=== PATIENT | male | born 1950 | race Caucasian/White ===

== ENCOUNTER 2020-10-18 11:23 | Observation (INO) | payer MEDICARE, SELFPAY ==
[2020-10-18] VITALS (38 sets, daily range): BP systolic 111–181; BP diastolic 67–81; PULSE 48–63; RESP 12–21; TEMP 36.3–36.6; O2SAT 96–100; BMI 24.4
--- NOTE | ~2020-10-18 | XR_ITS ---
XR chest 2V DATE: 10/18/2020 11:56 INDICATION: Left-sided chest pain. TECHNIQUE: PA and lateral views COMPARISON: 05/24/2018 PA and lateral chest FINDINGS: Normal heart size. No hilar or mediastinal enlargement. No pulmonary infiltrate or consolid ation, pleural effusion or pulmonary vascular congestion or pneumothorax. Status post anterior cervical spine surgical fusion. IMPRESSION: No active cardiopulmonary disease Reviewed, dictated and finalized at location A.
--- NOTE | ~2020-10-18 | CT_ITS ---
EXAMINATION: CTA chest PE protocol DATE: 10/18/2020 13:08 CDT INDICATION: Substernal chest pain. Hypertension. TECHNIQUE: Computed tomographic angiography (CTA) of the chest was performed with 100 mL Omnipaque-35 0 intravenous contrast. The dose-length product was 440.68 mGy-cm. Maximum intensity projection 3D-re constructions of the aorta and other arteries were constructed by the technologist on a separate work station. Automated exposure control and iterative reconstruction technique were employed. COMPARISON: Chest x-ray dated 10/18/2020. FINDINGS: Study is technically adequate without evidence for pulmonary embolism. Heart size upper nor mal. No significant pleural or pericardial effusion. No thoracic lymphadenopathy. There is right hydr onephrosis. Dependent atelectasis. No endobronchial lesions. No focal airspace consolidation. No pulm onary nodules or masses. IMPRESSION: 1. No acute cardiopulmonary disease. No evidence for pulmonary embolism. Reviewed, dictated and finalized at location B.
--- NOTE | 2020-10-18 11:24 | ECG_ITS ---
Measurements Intervals [place] Rate: 49 P: 71 MO: 144 QRS: 36 QRSD: 94 T: 21 QT: 408 QTc: 371 Interpretive Statements SINUS BRADYCARDIA BASELINE ARTIFACT- I, II, III, AVR, AVL, AVF ABNORMAL ECG Electronically Signed On 10-18-2020 11:32:52 CDT by Cheo Melton D.O.
[2020-10-18 11:44] LABS: Basophils Percent Auto 0.4 % (0.2-1.2); Eosinophils Absolute Auto 0.1 K/mm3 (0-0.3); Hematocrit 43.8 % (42.0-52.0); Immature Granulocyte Absolute 0.02 K/mm3 (0.00-0.031); Immature Granulocyte Percent A 0.4 % (0-0.5); Lymphocytes Absolute Auto 0.67 K/mm3 (0.9-3.2); Lymphocytes Percent Auto 12.2 % (18.3-44.2); Mean Corpuscular HGB Conc 34.2 g/dl (32-36); Mean Corpuscular Hemoglobin 29.9 pg (26-34); Mean Corpuscular Volume 87.4 fl (80-100); Mean Platelet Volume 10.7 fl (7.4-10.4); Monocytes Absolute Auto 0.5 K/mm3 (0.1-0.6); Monocytes Percent Auto 9.7 % (2.6-8.5); Neutrophils Absolute Auto 4.1 K/mm3 (1.3-6.7); Neutrophils Percent Auto 75.3 % (45.5-73.1); Platelet Count Result 175 k/mm3 (150-375); Red Blood Count 5.01 M/mm3 (4.6-6.20); Red Cell Distribution Width 13.2 % (11.5-14.5); White Blood Count 5.5 K/mm3 (4.5-10.0)
[2020-10-18 11:54] LABS: INR 0.9; Partial Thromboplastin Time 24.8 SECONDS (22.3-36.8); Prothrombin Time 13.2 Seconds (11.1-14.7)
[2020-10-18 11:55] LABS: Anion Gap 5 mmol/L (8-16); Blood Urea Nitrogen 11 mg/dL (9-20); Calcium 9.4 mg/dL (8.4-10.2); Carbon Dioxide 31 mmol/L (22-30); Chloride 104 mmol/L (98-107); Estimated CRCL calculation 71 ml/min; Estimated Glomerular Filt Rate > 60; Glucose 108 mg/dL (75-110); Sodium 140 mmol/L (137-145)
[2020-10-18 12:07] LABS: Troponin I < 0.012 ng/mL (0.000-0.034)
--- NOTE | 2020-10-18 12:33 | ED.CHESTPAIN ---
HPI - Chest Pain General Chief Complaint: Chest Pain Stated Complaint: CP Time Seen by Provider: 10/18/20 11:26 Source: RN notes reviewed History of Present Illness HPI narrative: Patient presents to emergency room from home for chest pain. Patient states that starting in the middle the night last night he had lower midsternal to just the left chest pain described as a pressure with radiation up into the neck states that the symptoms have been intermittent but are worse with activity and associated with shortness of breath. States that he had a similar episode approximately 2-1/2 weeks ago and gone to his PCP EKG at that time been normal the been started on famotidine which she has been taking he denies any fevers or chills he denies any nausea or vomiting or any other symptoms he states he has had heart catheterization approximately [address] Eagle that was normal at that time Related Data Home Medications Medication Instructions Recorded Confirmed aspirin [Baby Aspirin] 81 mg PO Q1-2D 10/18/20 Allergies Allergy/AdvReac Type Severity Reaction Status Date / Time piroxicam Allergy Mild FLUSHING Verified 10/02/20 16:41 Review of Systems Review of Systems: Narrative: Gen.: Denies fevers or chills ENT: Denies congestion Respiratory: For shortness of breath CV: Chest pain GI: Denies abdominal pain nausea, emesis or diarrhea Musculoskeletal: Denies back pain or muscle pain Neuro: Denies numbness, tingling, weakness or focal weakness Skin: Denies rash Except as documented, all other systems reviewed and negative PMFSH Past Medical History Medical History (Updated 10/18/20 @ 15:00 by Rafita Turner DO) Essential (primary) hypertension Family History Family History Father Hypertension, Onset Age: 73 Mother Hypertension, Onset Age: 71 Family history of chronic obstructive pulmonary disease, Onset Age: 71 Family history of congestive heart failure, Onset Age: 71 Sibling Family history of cardiovascular disease Other Family history of coronary artery disease Social History Social History Smoking status: Never smoker Alcohol intake: current Exam Narrative: Exam Narrative: APPEARANCE: No acute distress, nontoxic, resting in bed HEENT: Normocephalic, atraumatic, OMM RESPIRATORY: No respiratory distress, clear to auscultation bilaterally with no rhonchi wheezing or rales CARDIOVASCULAR: RRR s murmur ABDOMINAL: Soft nondistended, tender palpation epigastrium left upper quadrant no tenderness right upper quadrant or right lower quadrant left lower quadrant no rebound or guarding MUSCULOSKELETAl: Moves all extremities. No clubbing, cyanosis or edema. NEURO: Awake and alert. Following commands, speech normal, no focal deficits SKIN:: Warm, dry. Normal Color PSYCHIATRIC: Normal affect/mood Course Course Emergency Course: Patient given GI cocktail with minimal change in pain. Given morphine with resolution of pain Review old records Discussed Dr. Eagle presentation work-up agrees with consult at this time Discussed with YASMIN Kline for Dr. Rodriguez presentation work-up agrees with admission at this time Discussed with patient and family results of workup and diagnosis. Discussed need for admission. Patient and family understand and agree to current treatment plan Vital Signs Vital signs: Vital Signs Temperature 97.9 F 10/18/20 11:24 Pulse Rate 55 L 10/18/20 11:24 Respiratory Rate 15 10/18/20 11:24 Blood Pressure 179/74 H 10/18/20 11:24 Pulse Oximetry 98 10/18/20 11:24 Temperature 97.9 F 10/18/20 11:24 Pulse Rate 54 L 10/18/20 14:31 Respiratory Rate 15 10/18/20 14:31 Blood Pressure 137/73 10/18/20 14:31 Pulse Oximetry 96 10/18/20 14:31 MDM - Chest Pain Lab Data Result diagrams: 10/18/20 11:39
[2020-10-18 12:34] LABS: Alanine Aminotransferase 21 U/L (4-50); Alkaline Phosphatase 69 U/L (38-126); Aspartate Amino Transferase 31 U/L (17-59); Lipase 78 U/L (23-300)
[2020-10-18] MEDS: MORPHINE SULFATE (*CRX) 2 MG/ML INJ IV PUSH (14:13)
[2020-10-18 15:02] LABS: Troponin I < 0.012 ng/mL (0.000-0.034)
--- NOTE | 2020-10-18 15:05 | ADMGEN ---
This patient, Camilo Gupta, was admitted to IMU Room 214-01. Patient/family oriented to hospital policies and general routines including ID bracelet, bed and alarms, visiting hours, pain management, procedures, bathroom and other care routines, personal items, smoking policy, room service/diet, and visiting hours. Information on how to activate the Rapid Response Team has been discussed. Patient/Family are encouraged to report perceived risks to care and to ask questions if they do not understand what they are told or what they should do.
--- NOTE | 2020-10-18 16:59 | PM.CNCAR ---
Assessment and Plan Additional Plan 70-year-old gentleman with previous history of some hypertension and mild dyslipidemia but with angiographically minimally diseased coronary arteries 2 years ago. He presents with an intermittent episode syndrome of chest pain for 2-3 weeks interestingly occurring a few days after he received his burch virus injection. He is not having any typical exertional angina. The symptoms seem to be waxing and waning independent of what he is doing in the way of physical activity. Following admission he is being ruled out for acute AR/acute coronary syndrome. I am going to obtain an echocardiogram tomorrow to ensure that LV function is still normal and that there are no regional wall motion abnormalities. At that point we will make a decision as to whether he is needs a renewed ischemic workup or not. Soto Eagle MD [facility] History of Present Illness History of Present Illness Consult date/time: 10/18/20 16:59 Consult reason: chest pain Reason For Visit: Chest pain Narrative: This is a very pleasant 70-year-old man that I know from previous consultation and evaluation a couple of years ago. He was presenting to the hospital emergency room today with episodes of chest pain and symptoms of generalized weakness that were occurring intermittently for the last several weeks. The patient is not known to have any significant coronary disease in fact he had a chest pain evaluation in 2019 and because of a mildly abnormal nuclear stress test underwent a coronary angiogram showing no evidence of any significant obstructive coronary disease. He has not been seen by me since that evaluation since it was essentially negative. He states that he started to have episodes of some intermittent nonexertional chest discomfort that seems to occur off and on for the last several weeks or so. He describes the discomfort as like a bubble like sensation in the low substernal to mid substernal region at times with some radiation up into the throat. There have been times he has notice this is worse in the supine position and better says sitting up or standing. He has not noticed to be is to be related to exertion although he has noticed that he has a sense of generalized fatigue and lack of stamina that is unusual for him. At his current age he has been enjoying very good healthy exercises regularly on an elliptical machine any generally can perform fairly good levels of aerobic activity. Interestingly these episodes of discomfort began several weeks ago a few days after he received his 1st Coronavirus injection. They seemed to dissipate and then he got his 2nd injection last week and the symptoms seem to recur after a few days again. He is not having any fevers or chills and denies any other cardiac symptomatology. He states that he was having some palpitations after I saw him for the angiogram and his PCP had him do a 48 hour Holter monitor couple of years ago that was a negative exam. In the emergency department his 12 lead ECGs were done in the were normal. He also had a 12 lead ECG done last week when he was in his PCPs office that was a normal tracing. Biomarkers are normal for the 1st 2 sets. Review of Systems Constitutional: Constitutional: Reports fatigue, Reports lethargy and Reports weakness Eyes: Eyes: Reports no additional eye complaints ENT: Reports system reviewed and no additional complaints, except as documented Cardiovascular: Cardiovascular: Reports as per HPI Respiratory: Respiratory: Reports no additional respiratory complaints Gastrointestinal: Gastrointestinal: Reports no additional gastrointestinal complaints Musculoskeletal: Musculoskeletal: Reports no additional musculoskeletal complaints Integumentary/Breasts: Skin/Breast: Reports system reviewed and no additional complaints, except as docu Neurologic: Reports system reviewed and no additional complaints, except as documented Endocrine: Endocrine: Repo
[2020-10-18 17:06] LABS: Troponin I < 0.012 ng/mL (0.000-0.034)
[2020-10-18] MEDS: FAMOTIDINE 20 MG TABLET PO (21:17)
--- NOTE | 2020-10-18 21:39 | PM.IMHP ---
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 The patient reports that he is very active at baseline. He goes for 3 mi walks 3-4 days a week and he also uses his elliptical 3 days a week and gets his heart rate up to 140. However starting on the 01 of October she began having episodes of substernal chest pain that is nonradiating that would last for several minutes at a time. The symptoms are accompanied by generalized weakness and fatigue. He initially thought that his chest pain was due to GERD and he was taking p.r.n. famotidine. The patient reported that his symptoms did feel similar to his heartburn and was accompanied by occasional belching. He went to his primary care physician's office after his symptoms persisted. A primary care doctor recommended that he take his famotidine scheduled. His heartburn symptoms did improve in his fatigue gradually resolved. He attributed the symptoms to receiving his Covid vaccine in the middle of August and having a delayed reaction. He then had his 2nd Covid vaccine 10/11/2020. Then on the or he again started having substernal chest discomfort and worsening fatigue and weakness. Times inter not necessarily associated with activity. His chest symptoms sometimes improve after he has belched. However his symptoms of fatigue have persisted. He has not had any nausea or vomiting. He denies any changes in his appetite. His weight has remained stable. He denies any orthopnea, paroxysmal nocturnal dyspnea or lower extremity swelling. He has not had any palpitations. He did have a Holter monitor the year so ago for evaluation of palpitations which was negative. He has not had any cough or congestion. He has not had any known COVID 19 exposures. He denies any shortness of breath with activity. He had a abnormal stress echo in late 2017 and had a cardiac catheterization in July 2018 the demonstrated minimal coronary artery disease with no more than 20-30% coronary artery plaquing. Cardiac catheterization was performed by Dr. Eagle. Review of Systems Review of Systems: Narrative: 12 systems were reviewed with pertinent positives and negatives per HPI. Except as documented in the HPI, all other systems were reviewed and are negative. FOR[facility] Past Medical History Medical History (Updated 10/18/20 @ 22:05 by Mallika Avelar DO) Basal cell carcinoma (BCC) of left nasal sidewall (~2000) Status post resection BPH (benign prostatic hyperplasia) Essential (primary) hypertension GERD (gastroesophageal reflux disease) Mixed hyperlipidemia MTHFR mutation Peripheral neuropathy Bilateral feet and hands Surgical History Surgical History (Updated 10/18/20 @ 22:00 by Mallika Avelar DO) H/O cervical spine surgery (~2014) History of appendectomy (~1973) History of cardiac catheterization July 2018 with less than 20 the 30% coronary artery plaquing of multiple vessels History of lumbar discectomy L4-L5 left-sided microdiskectomy 1992, L4-L5 right lumbar decompression 2000 Status post cataract extraction of both eyes with insertion of intraocular lens Status post left rotator cuff repair (~2004) Ureteropelvic junction obstruction, congenital Left ureteroplasty 1972 due to congenital scarring Family History Family History Father Hypertension, Onset Age: 73 Mother Hypertension, Onset Age: 71 Pulmonary fibrosis CHF (congestive heart failure) Sibling History of blood clots Pulmonary embolism Heart disease Coronary artery disease Social History Social History Smoking status: Never smoker Alcohol intake: current Drinks per we
[2020-10-18] MEDS: ENOXAPARIN 40 MG/0.4 ML SYRINGE SUB-Q (22:56)
[2020-10-19] VITALS (8 sets, daily range): BP systolic 107–149; BP diastolic 61–76; PULSE 44–65; RESP 16–18; TEMP 36.1–36.6; O2SAT 98–100
--- NOTE | 2020-10-19 | ECHO_ITS ---
Patient Info Name: Camilo Gupta Age: 70 years : 1950 Gender: Male Ht: 68 in Wt: 160 lbs BSA: 1.87 m2 HR: 59 bpm BP: 125 / 64 mmHg Heart Rhythm: Sinus Rhythm Technical Quality: Good Exam Date: 10/19/2020 8:21 AM Exam Location: [facility] Pulmonary Exam Room: 214 Patient Status: Inpatient Admit Date: 10/18/2020 Staff Ordering Physician: Soto Eagle MD Machine Shop Worker: Anneliese Patel RDCS Attending Provider: Joe Nguyen MD Referring Physician: Shagufta CHACON; Exam Type: CA echo doppler color flow Study Info Indications - chest pain Complete two-dimensional, color flow and Doppler transthoracic echocardiogram is performed. Summary 1. Complete two-dimensional, color flow and Doppler transthoracic echocardiogram is performed. 2. Left ventricular chamber dimension is normal. 3. Left ventricular systolic function is normal, estimated at 65-70%. 4. There is no increased left ventricular wall thickness. 5. The left ventricular diastolic function is abnormal. 6. Right atrial chamber dimension is mildly enlarged. 7. There is mild aortic valve calcification. 8. There is mild mitral valve regurgitation. 9. There is mild tricuspid valve regurgitation. 10. Mild pulmonary hypertension, estimated pulmonary arterial systolic pressure is 36 mmHg. Left Ventricle Left ventricular chamber dimension is normal. Left ventricular systolic function is normal, estimated at 65-70%. There is no increased left ventricular wall thickness. The left ventricular diastolic function is abnormal. Right Ventricle Right ventricular chamber dimension is normal. Right ventricular systolic function is normal. Left Atria Left atrial chamber dimension is normal. Right Atria Right atrial chamber dimension is mildly enlarged. Atrial Septum Intact interatrial septum visualized by color flow imaging. Aortic Valve The aortic valve is trileaflet. There is mild aortic valve sclerosis. There is no aortic valve stenosis. There is trace aortic valve regurgitation. There is mild aortic valve calcification. Pulmonic Valve The pulmonic valve is normal. There is no pulmonic valve stenosis. There is trace pulmonic regurgitation. Mitral Valve The mitral valve has normal leaflets. There is no mitral valve stenosis. There is mild mitral valve regurgitation. Tricuspid Valve The tricuspid valve leaflets are normal. There is no significant tricuspid valve stenosis. There is mild tricuspid valve regurgitation. Mild pulmonary hypertension, estimated pulmonary arterial systolic pressure is 36 mmHg. Pericardium/Pleural The pericardium appears normal. There is no pericardial effusion. Inferior Vena Cava Dilated inferior vena cava with >50% collapse upon inspiration consistent with elevated right atrial pressure, 10 mmHg. Aorta The aortic root size at the sinus of Valsalva is normal. The prox ascending aorta size is normal. Left Ventricular Outflow Tract Name Value Normal LVOT 2D LVOT Diameter 2.0 cm LVOT Doppler LVOT Peak Gradient 7 mmHg LVOT Me
[2020-10-19 05:16] LABS: Basophils Percent Auto 0.6 % (0.2-1.2); Eosinophils Absolute Auto 0.2 K/mm3 (0-0.3); Eosinophils Percent Auto 3.4 % (0-4.4); Hematocrit 41.8 % (42.0-52.0); Immature Granulocyte Absolute 0.02 K/mm3 (0.00-0.031); Immature Granulocyte Percent A 0.4 % (0-0.5); Lymphocytes Absolute Auto 0.98 K/mm3 (0.9-3.2); Lymphocytes Percent Auto 18.6 % (18.3-44.2); Mean Corpuscular HGB Conc 33.5 g/dl (32-36); Mean Corpuscular Volume 86.7 fl (80-100); Mean Platelet Volume 10.6 fl (7.4-10.4); Monocytes Absolute Auto 0.5 K/mm3 (0.1-0.6); Monocytes Percent Auto 9.1 % (2.6-8.5); Neutrophils Absolute Auto 3.6 K/mm3 (1.3-6.7); Neutrophils Percent Auto 67.9 % (45.5-73.1); Platelet Count Result 167 k/mm3 (150-375); Red Blood Count 4.82 M/mm3 (4.6-6.20); Red Cell Distribution Width 13.2 % (11.5-14.5); White Blood Count 5.3 K/mm3 (4.5-10.0)
[2020-10-19 05:33] LABS: Anion Gap 1 mmol/L (8-16); Blood Urea Nitrogen 12 mg/dL (9-20); Calcium 8.9 mg/dL (8.4-10.2); Carbon Dioxide 34 mmol/L (22-30); Chloride 105 mmol/L (98-107); Estimated CRCL calculation 64 ml/min; Estimated Glomerular Filt Rate > 60; Glucose 97 mg/dL (75-110); Potassium 4.4 mmol/L (3.4-5.0); Sodium 140 mmol/L (137-145)
[2020-10-19] MEDS: TAMSULOSIN HCL 0.4 MG CAPSULE PO (10:07)
[2020-10-19] MEDS: FAMOTIDINE 20 MG TABLET PO (10:07)
[2020-10-19] MEDS: ATORVASTATIN 10 MG TABLET PO (10:07)
[2020-10-19] MEDS: LOSARTAN POTASSIUM 25 MG TABLET PO (10:07)
--- NOTE | 2020-10-19 11:35 | PM.PNCARD ---
Progress Note: A&P Assessment and Plan (1) Chest pain: Qualifiers: Chest pain type: unspecified Qualified Code(s): R07.9 - Chest pain, unspecified Code(s): R07.9 - Chest pain, unspecified Status: Acute Assessment and Plan: Unlikely cardiac. Echocardiogram was unremarkable. Probably GI related cannot exclude a side effect to COVID vaccine and albeit not excluded less likely cardiac in etiology. Will have him follow up with Dr. Eagle in 2-4 weeks. Continue aspirin, statin, ARB. He should obviously return to the hospital if he has recurring the worsening chest pain or discomfort in the were some signs or symptoms (2) Essential (primary) hypertension: Code(s): I10 - Essential (primary) hypertension Status: Acute Assessment and Plan: At goal Subjective Date/time seen: 10/19/20 11:35 Interval history: 70-year-old with chest pain Date of service 10/19/2020: He feels okay and is better. Has some mild residual discomfort but better than previous. No shortness of breath Review of Systems Constitutional: Constitutional: Reports fatigue, Reports lethargy and Reports weakness Eyes: Eyes: Reports no additional eye complaints ENT: Reports system reviewed and no additional complaints, except as documented Cardiovascular: Cardiovascular: Reports as per HPI Respiratory: Respiratory: Reports no additional respiratory complaints Gastrointestinal: Gastrointestinal: Reports no additional gastrointestinal complaints Musculoskeletal: Musculoskeletal: Reports no additional musculoskeletal complaints Integumentary/Breasts: Skin/Breast: Reports system reviewed and no additional complaints, except as docu Neurologic: Reports system reviewed and no additional complaints, except as documented and Reports weakness Endocrine: Endocrine: Reports no additional endocrine complaints and Reports fatigue Hematologic/Lymphatic: Hematologic/Lymphatic: Reports no additional hematologic/lymphatic complaints Allergic/Immunologic: Allergic/Immunologic: Reports no additional allergic/immunologic complaints Exam Const: General: comfortable and no acute distress Other: Pleasant healthy-appearing gentleman in no distress HENMT: Mouth: Yes moist mucous membranes Eyes: Sclera: sclerae normal Neck: Neck: supple and no JVD Carotids: bruit Other: No carotid bruits normal carotid upstrokes Resp: Effort & Inspection: normal respiratory effort Auscultation: clear to auscultation bilaterally Cardio: Rate: regular rate Rhythm: regular rhythm Other: PMI nondisplaced no murmur no gallop GI: GI Palp: No abdominal tenderness Skin: General skin exam: normal color Neuro: Cognition (Neuro): normal cognition Extrem: General: normal to inspection Psych: Appearance: grossly normal Objective Data Vital Signs Vital Signs: Vital Signs - 24 hr 10/18/20 11:45 10/18/20 11:46 10/18/20 11:56 Temperature Pulse Rate 49 L 48 L 55 L Respiratory Rate 18 15 17 Blood Pressure 136/77 157/76 H Pulse Oximetry 98 97 99 10/18/20 12:00 10/18/20 12:01 10/18/20 12:02 Temperature Pulse Rate 48 L 49 L 50 L Respiratory Rate 12 13 13 Blood Pressure 144/69 H Pulse Oximetry 98 98 98 10/18/20 12:09 10/18/20 12:15 10/18/20 12:16 Temperature Pulse Rate 52 L 52 L 54 L Respiratory Rate 12 12 Blood Pressure 151/81 H Pulse Oximetry 98 99 10/18/20 12:30 10/18/20 12:31 10/18/20 12:45 Temperature Pulse Rate 48 L 48 L 52 L Respiratory Rate 12 16 13 Blood Pressure 141/69 H Pulse Oximetry 98 98 99 10/18/20 12:46 10/18/20 13:09 10/18/20 13:11 Temperature Pulse Rate 50 L 59 L 57 L Respiratory Rate 15 16 18 Blood Pressure 154/69 H 161/72 H Pulse Oximetry 97 99 98 10/18/20 13:15 10/18/20 13:16 10/18/20 13:30 Temperature Pulse Rate 56 L 57 L 62 Respiratory Rate 17 18 18 Blood Pressure 148/67 H Pulse Oximetry 99 98 99 10/18/20 13:36 10/18/20 13:45
--- NOTE | 2020-10-19 13:03 | PM.DS ---
DS: Admitting Diagnosis Admitting Diagnosis Admitting Diagnosis: Chest pain DS: Discharge Diagnosis Discharge Diagnosis (1) Chest pain: Qualifiers: Chest pain type: unspecified Qualified Code(s): R07.9 - Chest pain, unspecified Code(s): R07.9 - Chest pain, unspecified Status: Acute Assessment and Plan: Patient's chest pain is atypical in nature and he has had 3 sets of negative troponins. He had a negative cardiac catheterization in July 2018. Echo is unremarkable. ? GI related. Pt may benefit from EGD. Pt to follow with cardiology in 2-4 weeks time. Pt to continue his home medications for HTN and HLD. 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 Troponins are negative patient is stable for discharge. Time Spent with Patient Time attestation: Total time spent providing and/or coordinating discharge services: 20 minutes on day of discharge Exam Narrative: Exam Narrative: General: Well, comfortable Respiratory: Clear to auscultation bilaterally Cardiovascular: Mild bradycardia, regular rhythm, no murmurs Gastrointestinal: Soft, nondistended, positive bowel sounds Skin: No pallor, no jaundice Musculoskeletal: No clubbing, cyanosis or edema Neurological: Alert and oriented, speech is clear, no facial asymmetry, moves all extremities equally Psychiatric: Appropriate mood and affect, pleasant and cooperative Hematologic/lymphatic: No petechiae, no bruising DS: Data Data Completed and Pending Labs on day of discharge: Labs from last 24 hours 10/19/20 10/19/20 10/18/20 05:08 05:07 16:37 WBC 5.3 RBC 4.82 Hgb 14.0 Hct 41.8 L MCV 86.7 MCH 29.0 MCHC 33.5 RDW 13.2 Plt Count 167 MPV 10.6 H Immature Gran % (Auto) 0.4 Neut % (Auto) 67.9 Lymph % (Auto) 18.6 Kaufman % (Auto) 9.1 H Eos % (Auto) 3.4 Baso % (Auto) 0.6 Lymph # (Auto) 0.98 Kaufman # (Auto) 0.5 Eos # (Auto) 0.2 Baso # (Auto) 0.0 Abs Immat Gran (auto) 0.02 Absolute Neuts (auto) 3.6 Absolute Nucleated RBC 0.0 Nucleated RBC % 0.0 Sodium 140 Potassium 4.4 Chloride 105 Carbon Dioxide 34 H Anion Gap 1 L BUN 12 Creatinine 0.90 Estim Creat Clear Calc 64 Estimated GFR > 60 Glucose 97 Calcium 8.9 Troponin I < 0.012 10/18/20 14:29 WBC RBC Hgb Hct MCV MCH MCHC RDW Plt Count MPV Immature Gran % (Auto) Neut % (Auto) Lymph % (Auto) Kaufman % (Auto) Eos % (Auto) Baso % (Auto) Lymph # (Auto) Kaufman # (Auto) Eos # (Auto) Baso # (Auto) Abs Immat Gran (auto) Absolute Neuts (auto) Absolute Nucleated RBC Nucleated RBC % Sodium Potassium Chloride Carbon Dioxide Anion Gap BUN Creatinine Estim Creat Clear Calc Estimated GFR Glucose Calcium Troponin I < 0.012 Discharge Plan Discharge Attending physician on discharge: Miri Braswell Consulting providers: Soto Eagle Discharging Clinician: Miri Braswell Anticipated Discharge Date/Time: 10/19/20 13:02 Patient Disposition: Home, Self-Care Activity: as tolerated Diet: heart healthy Patient Instructions: Antibiotic Form Stand Alone Forms: General Discharge Information Follow-up/Referrals: Francis Stevens MD [Primary Care Provider] - Soto Eagel MD [Physician] - (follow up in 2 weeks time ) Discharge Medications: Continued aspirin 81 mg Tablet,Chewable 81 mg PO QMWF RF: 0 famotidine 20 mg tablet 20 mg PO Q12H RF: 0 tamsulosin 0.4 mg capsule 0
== END 2020-10-19 13:17 | disposition home or self-care (01) ==
LOC: ANHED 11:42 → ANHIMU 15:00
PROVIDERS: Admitting Provider Internal Medicine; Emergency Provider Emergency Medicine; PCP Family Medicine; Visit Provider Family Medicine
DX: R07.89 Other chest pain (principal); R53.83 Other fatigue; I10 Essential (primary) hypertension; E78.5 Hyperlipidemia, unspecified; Z85.828 Personal history of other malignant neoplasm of skin
CPT/HCPCS: 36415; 71046; 71275; 80048; 80076; 83690; 84484; 85025; 85380; 85610; 85730; 93005; 93306; 96372; 96374; 99285; A9270; G0378; J1650; J2270; Q9967

== ENCOUNTER → 2020-10-26 01:42 | Outpatient (CLI) | payer MEDICARE, SELFPAY ==
[2020-10-26 19:34] LABS: SARS-CoV-2 RNA PCR Negative
== END ==
PROVIDERS: Visit Provider Internal Medicine Gastroenterology
DX: Z01.812 Encounter for preprocedural laboratory examination (principal); Z20.822 Contact with and (suspected) exposure to COVID-19
CPT/HCPCS: C9803; U0003; U0005

== ENCOUNTER → 2020-10-28 10:41 | Outpatient (CLI) | payer MEDICARE, SELFPAY ==
--- NOTE | ~2020-10-28 | US_ITS ---
EXAMINATION: US abdomen complete DATE: 10/28/2020 11:22 INDICATION: Generalized abdominal pain. Reflux. Disease of the chest and system. TECHNIQUE: Multiple grayscale and Doppler ultrasound images of the abdomen were obtained. COMPARISON: None FINDINGS: The pancreatic head and body are normal in appearance. The pancreatic tail is not visualized. The vi sualized proximal inferior vena cava is normal. The aorta is also normal measuring 2.3 similar eugene l diameter proximally, 2.2 cm in the mid aorta and tapering to 1.9 cm the distal aorta. Liver has nor mal echogenicity and contour, with a smooth surface. No liver lesion identified. No intrahepatic bili xavi duct dilation suspected. Portal venous flow was seen in the hepatopetal, normal direction and has normal Doppler waveform. The gallbladder is normal in appearance. There is no cholelithiasis. The c ommon bile duct measures 3-4 mm, which is normal. Sonographic Waters sign was reported as negative by the photographic enlarger operator. There is normal renal contour and echogenicity bilaterally. The right kidney measur es 8.9 x 5.5 x 5.4 cm and the left 9.7 x 6.0 x 4.9 cm. There are no focal renal lesions identified. Mild right hydronephrosis.. IMPRESSION: 1. Mild right hydronephrosis of indeterminate etiology. Otherwise unremarkable abdominal ultrasound. Reviewed, dictated and finalized at location B.
== END ==
PROVIDERS: PCP Family Medicine; Visit Provider Family Medicine
DX: R07.9 Chest pain, unspecified (principal); K92.9 Disease of digestive system, unspecified
CPT/HCPCS: 76700

== ENCOUNTER 2020-10-30 01:54 | Day surgery (SDC) | payer MEDICARE, SELFPAY ==
[2020-10-23 13:27] VITALS: BMI 23.9
[2020-10-30 08:42] VITALS: BP 122/72; PULSE 51; RESP 16; TEMP 36.6; O2SAT 97; BMI 24.0
[2020-10-30] MEDS: LACTATED RINGERS 1,000 ML 150 ML IV CONT (08:51)
--- NOTE | 2020-10-30 09:02 | PM.HPGS ---
History of Present Illness History of Present Illness Consent: Risks, benefits, and alternatives have been discussed and questions answered. Patient agrees to proceed with procedure. Chief complaint: epigastric pain Narrative: Camilo Gupta is a 70 year old male with chronic Intermittent reflux who recently had severe chest pain. Cardiac etiology was ruled out. Review of Systems Review of Systems: All systems reviewed & are unremarkable except as noted in HPI and below PMFSH Past Medical History Medical History Basal cell carcinoma (BCC) of left nasal sidewall (~2000) Status post resection BPH (benign prostatic hyperplasia) Essential (primary) hypertension GERD (gastroesophageal reflux disease) Mixed hyperlipidemia MTHFR mutation Peripheral neuropathy Bilateral feet and hands Surgical History Surgical History H/O cervical spine surgery (~2014) History of appendectomy (~1973) History of cardiac catheterization July 2018 with less than 20 the 30% coronary artery plaquing of multiple vessels History of lumbar discectomy L4-L5 left-sided microdiskectomy 1992, L4-L5 right lumbar decompression 2000 Status post cataract extraction of both eyes with insertion of intraocular lens Status post left rotator cuff repair (~2004) Ureteropelvic junction obstruction, congenital Left ureteroplasty 1972 due to congenital scarring Family History Family History Father Hypertension, Onset Age: 73 Mother Hypertension, Onset Age: 71 Pulmonary fibrosis CHF (congestive heart failure) Sibling History of blood clots Pulmonary embolism Heart disease Coronary artery disease Social History Social History Smoking status: Never smoker Alcohol intake: current Drinks per week: 5 Alcohol use details: WINE Substance use: never Substance use type: does not use Living arrangements: with family Spiritual care concerns: No Meds Home Medications and Allergies Home Medications Medication Instructions Recorded Confirmed Type losartan 25 mg tablet 25 mg PO DAILY #90 tablet 05/03/20 10/30/20 Rx atorvastatin 10 mg tablet 10 mg PO DAILY #90 tablet 08/21/20 10/30/20 Rx aspirin 81 mg PO QMWF 10/18/20 10/30/20 History tamsulosin 0.4 mg PO DAILY 10/18/20 10/30/20 History esomeprazole magnesium [Nexium] 20 mg PO DAILY 10/23/20 10/30/20 History magnesium gluconate 500 mg PO DAILY 10/23/20 10/30/20 History polyethylene glycol 3350 [Miralax] 1 g PO DAILY 10/23/20 10/30/20 History vitamin B complex 1 tablet PO DAILY 10/23/20 10/30/20 History Allergies Allergy/AdvReac Type Severity Reaction Status Date / Time piroxicam Allergy Mild FLUSHING Verified 10/30/20 08:39 Vital Signs Vital Signs - 24 hr 10/30/20 08:42 Temperature 36.6 C Pulse Rate 51 L Respiratory Rate 16 Blood Pressure 122/72 Pulse Oximetry 97 Exam Const: General: alert Orientation/consciousness: patient oriented x3 Resp: Auscultation: clear to auscultation bilaterally Cardio: Rhythm: regular rhythm GI: GI Palp: Yes Soft to palpation and No Tenderness to palpation present (GI) Neuro: General: patient oriented x3 Assessment and Plan Assessment and plan (1) Chest pain: Qualifiers: Chest pain type: unspecified Qualified Code(s): R07.9 - Chest pain, unspecified Code(s): R07.9 - Chest pain, unspecified Status: Acute Assessment and Plan: EGD with possible biopsy or dilatation or cautery.
--- NOTE | 2020-10-30 09:15 | WPDANESEPPF ---
Anes - Initial Pre Proc Eval Procedure: Operation Date: 10/30/20 09:30 Proposed Procedures p Esophagogastroduodenoscopy - Renny Hairston MD Date/Time: 10/30/20 09:15 Surgeon: Renny Hairston MD Pre Op Diagnosis: epigastric pain Patient Data Age: 70 Gender: M Height: 5 ft 9 in Weight: 73.8 kg Last Vital Signs Temp 97.8 F 10/30/20 08:42 Pulse 51 L 10/30/20 08:42 Resp 16 10/30/20 08:42 BP 122/72 10/30/20 08:42 Pulse Ox 97 10/30/20 08:42 Allergies Allergy/AdvReac Type Severity Reaction Status Date / Time piroxicam Allergy Mild FLUSHING Verified 10/30/20 08:39 Home Medications Medication Instructions Recorded Confirmed Type losartan 25 mg tablet 25 mg PO DAILY #90 tablet 05/03/20 10/30/20 Rx atorvastatin 10 mg tablet 10 mg PO DAILY #90 tablet 08/21/20 10/30/20 Rx aspirin 81 mg PO QMWF 10/18/20 10/30/20 History tamsulosin 0.4 mg PO DAILY 10/18/20 10/30/20 History esomeprazole magnesium [Nexium] 20 mg PO DAILY 10/23/20 10/30/20 History magnesium gluconate 500 mg PO DAILY 10/23/20 10/30/20 History polyethylene glycol 3350 [Miralax] 1 g PO DAILY 10/23/20 10/30/20 History vitamin B complex 1 tablet PO DAILY 10/23/20 10/30/20 History Patient hx anesthesia problems: none Family hx anesthesia problems: none PMFSH Past Medical History Medical History Basal cell carcinoma (BCC) of left nasal sidewall (~2000) Status post resection BPH (benign prostatic hyperplasia) Essential (primary) hypertension GERD (gastroesophageal reflux disease) Mixed hyperlipidemia MTHFR mutation Peripheral neuropathy Bilateral feet and hands Surgical History Surgical History H/O cervical spine surgery (~2014) History of appendectomy (~1973) History of cardiac catheterization July 2018 with less than 20 the 30% coronary artery plaquing of multiple vessels History of lumbar discectomy L4-L5 left-sided microdiskectomy 1992, L4-L5 right lumbar decompression 2000 Status post cataract extraction of both eyes with insertion of intraocular lens Status post left rotator cuff repair (~2004) Ureteropelvic junction obstruction, congenital Left ureteroplasty 1972 due to congenital scarring Family History Family History Father Hypertension, Onset Age: 73 Mother Hypertension, Onset Age: 71 Pulmonary fibrosis CHF (congestive heart failure) Sibling History of blood clots Pulmonary embolism Heart disease Coronary artery disease Social History Social History Smoking status: Never smoker Alcohol intake: current Drinks per week: 5 Alcohol use details: WINE Substance use: never Substance use type: does not use Living arrangements: with family Spiritual care concerns: No Anes - Eval Final PreProcedure Day of Procedure 10/30/20 09:15 Patient weight: normal Heart: regular rate and rhythm Lungs: clear to auscultation Airway: Mallampati scale class II Neurological: alert and oriented Last oral intake: >/= 8 hours ASA classification: II Emergent: no Anesthetic plan: proceed Anesthesia type and monitoring: general GIVS and standard monitoring Informed Consent: The patient's anesthetic plan and its attendant risks and benefits were discussed with the patient/family/POA. Questions were solicited and answers provided to the satisfaction of the patient/family/POA.
[2020-10-30 09:48] VITALS: BP 94/57; PULSE 50; RESP 26; O2SAT 96
[2020-10-30 09:58] VITALS: BP 116/68; PULSE 50; RESP 26; O2SAT 98
[2020-10-30 10:08] VITALS: BP 122/78; PULSE 49; RESP 26; O2SAT 98
== END 2020-10-30 10:23 | disposition home or self-care (01) ==
PROVIDERS: PCP Family Medicine; Visit Provider Internal Medicine Gastroenterology
PROC: 0DJ08ZZ Inspection of Upper Intestinal Tract, Via Natural or Artificial Opening Endoscopic (ICD-10-PCS; CPT 43235; principal; 2020-10-30 09:30)
DX: R07.89 Other chest pain (principal); K21.00 Gastro-esophageal reflux disease with esophagitis, without bleeding; I10 Essential (primary) hypertension; E78.2 Mixed hyperlipidemia; G62.9 Polyneuropathy, unspecified; E72.12 Methylenetetrahydrofolate reductase deficiency; N40.0 Benign prostatic hyperplasia without lower urinary tract symptoms; Z79.82 Long term (current) use of aspirin
CPT/HCPCS: 43235; J2704; J7120

== ENCOUNTER → 2021-01-28 14:24 | Outpatient (CLI) | payer MEDICARE, SELFPAY ==
--- NOTE | ~2021-01-28 | XR_ITS ---
XR shoulder RT min 2V DATE: 01/28/2021 14:42 INDICATION: Chronic right shoulder pain. No recent injury. TECHNIQUE: 5 views COMPARISON: None FINDINGS: Status post anterior cervical spine surgical fusion. Osteopenia. Degenerative spurring of the thoracic spine. There is suggestion of a small osteochondroma along the neck of the proximal right humerus. No fracture, dislocation, periosteal reaction or bone destruction of the right shoulder. Normal align ment at the acromioclavicular and glenohumeral joints. IMPRESSION: Status post anterior cervical spine surgical fusion Degenerative spurring of the thoracic spine Osteopenia Small osteochondroma of the right humeral neck is suggested Reviewed, dictated and finalized at location A.
== END ==
PROVIDERS: PCP Family Medicine; Visit Provider Family Medicine
DX: M85.811 Other specified disorders of bone density and structure, right shoulder (principal)
CPT/HCPCS: 73030

== ENCOUNTER 2022-09-24 11:18 | Outpatient (CLI) | payer MEDICARE, SELFPAY ==
--- NOTE | 2022-09-24 12:49 | ECG_ITS ---
Measurements Intervals [place] Rate: 47 P: 33 MN: 145 QRS: 34 QRSD: 114 T: 23 QT: 425 QTc: 378 Interpretive Statements SINUS BRADYCARDIA INTRAVENTRICULAR CONDUCTION DELAY BASELINE ARTIFACT- I, II, III, AVR, AVL, AVF ABNORMAL ECG INTRAVENTRICULAR CONDUCTION DELAY NOW PRESENT Electronically Signed On 09-24-2022 13:18:20 PULP DRIER by Cheo Melton D.O.
[2022-09-24 13:28] LABS: Basophils Percent Auto 0.6 % (0.2-1.2); Eosinophils Absolute Auto 0.2 K/mm3 (0-0.3); Eosinophils Percent Auto 2.3 % (0-4.4); Hematocrit 43.6 % (42.0-52.0); Hemoglobin 14.7 g/dL (14.0-18.0); Immature Granulocyte Absolute 0.01 K/mm3 (0.00-0.031); Immature Granulocyte Percent A 0.2 % (0-0.5); Lymphocytes Absolute Auto 1.07 K/mm3 (0.9-3.2); Lymphocytes Percent Auto 16.7 % (18.3-44.2); Mean Corpuscular HGB Conc 33.7 g/dl (32-36); Mean Corpuscular Hemoglobin 29.5 pg (26-34); Mean Corpuscular Volume 87.4 fl (80-100); Mean Platelet Volume 11.4 fl (7.4-10.4); Monocytes Absolute Auto 0.7 K/mm3 (0.1-0.6); Monocytes Percent Auto 10.6 % (2.6-8.5); Neutrophils Absolute Auto 4.5 K/mm3 (1.3-6.7); Neutrophils Percent Auto 69.6 % (45.5-73.1); Platelet Count Result 194 k/mm3 (150-375); Red Blood Count 4.99 M/mm3 (4.6-6.20); Red Cell Distribution Width 13.3 % (11.5-14.5); White Blood Count 6.4 K/mm3 (4.5-10.0)
[2022-09-24 13:41] LABS: Hemoglobin A1C 5.6 % (<5.7)
[2022-09-24 13:44] LABS: Albumin Level 4.5 g/dL (3.5-5.1); Anion Gap 5 mmol/L (8-16); Blood Urea Nitrogen 14 mg/dL (9-20); Carbon Dioxide 31 mmol/L (22-30); Chloride 104 mmol/L (98-107); Estimated Glomerular Filt Rate > 60; Glucose 83 mg/dL (65-110); Potassium 3.9 mmol/L (3.4-5.0); Sodium 140 mmol/L (137-145); Urine Cotinine NEGATIVE
== END 2022-09-24 11:19 | disposition home or self-care (01) ==
PROVIDERS: PCP Emergency Medicine; Visit Provider Orthopaedic Surgery
DX: M16.11 Unilateral primary osteoarthritis, right hip (principal); Z01.818 Encounter for other preprocedural examination; I45.9 Conduction disorder, unspecified
CPT/HCPCS: 80048; 80307; 82040; 83036; 85025; 87081; 93005

== ENCOUNTER 2022-11-23 02:19 | Day surgery (SDC) | payer MEDICARE, SELFPAY ==
[2022-09-24 12:03] VITALS: BMI 25.9
--- NOTE | 2022-09-24 12:26 | PC.NURSE ---
Report to the Outpatient Waiting Room, entrance under the green pavilion located off [address], at time __1000 on date _10/14/22 . Planned Procedure Time: ___1200 . Time changes happen often and if your time is changed the preop area will call you the afternoon before. - You and your visitor will be asked to self-screen and do not enter if you have any COVID symptoms. - Only one visitor is requested with a max of two and NO children visitors are allowed at this time. - The patient visitor may be requested to leave or wait in car when not with patient due to distancing restrictions. - A mask is optional within the hospital at this time. Patients may have clear liquids (water, carbonated beverages, clear teas, apple juice) until 3 hours prior to surgery with a maximum of 20 ounces. - No food from midnight until time of surgery - Infants may have breast milk until 4 hours before surgery, infant formula 6 hours prior to surgery. - Children will be allowed to drink immediately following surgery. If applicable, please bring a bottle or sippy cup to assist with drinking. Juice, water, soda, and popsicles are readily available. For infants on formula, please bring formula the day of surgery. Pacifiers are allowed. Take the following medications with a SIP of water the morning of surgery: ____EYE DROP DO NOT STOP ANY OF YOUR OTHER PRESCRIPTION MEDICATIONS PRIOR TO SURGERY ?EXCEPT THE FOLLOWING Medications to discontinue per physician ___NAPROXEN 7 DAYS PRE OP PER DR HOANG LAST DOSE 10/06/22. ALL VITAMINS/SUPPLEMENTS 3 DAYS PRE OP . LAST DOSE 10/10/22 Please no make-up, nail telugu, hairspray, perfume, deodorant, or body powder the day of surgery. No jewelry (including any body piercings) or valuables the day of surgery, leave them at home. Please take a shower or bath the night before, or the morning of, surgery with an antibacterial soap. Wear comfortable, loose fitting clothing. Children are encouraged to wear pajamas. - Jewelry must be removed prior to entering the operating room. Rings and piercings that are not removed may be cut off. - The hospital will not accept responsibility for valuables. - Please leave all valuables, including medications, at home the day of surgery. If you are going home after surgery, a licensed highway truck driver must drive you home. - NO public transportation without another adult if you receive anesthesia. - We recommend that an adult stay with you for 24 hours following discharge. - We also recommend that you do not drive, make important decision, drink alcoholic beverages, or take any drugs that were not prescribed by your health care provider for at least 24 hours after your discharge time. For Pediatric surgeries, we recommend two adults accompany the child home. Follow any additional instructions given to you from your surgeon. If you or anyone in your household have experienced Covid symptoms in the past week, please notify your surgeon or the nurse liaison at the phone number below for possible testing. VERBAL AND WRITTEN instructions given to __PATIENT and asked if any additional questions and then verbalized understanding. Patient advised to call surgeon office or pre surgery nurse liaison [phone] if any additional questions.
[2022-09-24 12:43] VITALS: BP 133/76; PULSE 46; RESP 18; TEMP 36.7; O2SAT 99
--- NOTE | 2022-11-09 11:07 | PC.NURSE ---
Report to the Outpatient Waiting Room, entrance under the green pavilion located off [facility], at time _0600 on date __11/23/22 . Planned Procedure Time: _0730 . Time changes happen often and if your time is changed the preop area will call you the afternoon before. - You and your visitor will be asked to self-screen and do not enter if you have any COVID symptoms. - A mask is optional within the hospital at this time. Patients may have clear liquids (water, carbonated beverages, clear teas, apple juice) until 3 hours prior to surgery with a maximum of 20 ounces. - No food from midnight until time of surgery - Infants may have breast milk until 4 hours before surgery, formula 6 hours prior to surgery. - Children will be allowed to drink immediately following surgery. If applicable, please bring a bottle or sippy cup to assist with drinking. Juice, water, soda, and popsicles are readily available. For infants on formula, please bring formula the day of surgery. Pacifiers are allowed. Take the following medications with a SIP of water the morning of surgery: ___EYE DROPS DO NOT STOP ANY OF YOUR OTHER PRESCRIPTION MEDICATIONS PRIOR TO SURGERY ?EXCEPT THE FOLLOWING Medications to discontinue per physician NAPROXEN 7 DAYS PRE OP.LAST DOSE 11/15/22. ALL VITAMINS/SUPPLEMENTS 3 DAYS PRE OP.LAST DOSE 11/19/22_ Please no make-up, nail slovenian, hairspray, perfume, deodorant, or body powder the day of surgery. No jewelry (including any body piercings) or valuables the day of surgery, leave them at home. Please take a shower or bath the night before, or the morning of, surgery with an antibacterial soap. Wear comfortable, loose fitting clothing. Children are encouraged to wear pajamas. - Jewelry must be removed prior to entering the operating room. Rings and piercings that are not removed may be cut off. - The hospital will not accept responsibility for valuables. - Please leave all valuables, including medications, at home the day of surgery. If you are going home after surgery, a licensed driver wheelchair must drive you home. - NO public transportation without another adult if you receive anesthesia. - We recommend that an adult stay with you for 24 hours following discharge. - We also recommend that you do not drive, make important decision, drink alcoholic beverages, or take any drugs that were not prescribed by your health care provider for at least 24 hours after your discharge time. For Pediatric surgeries, we recommend two adults accompany the child home. Follow any additional instructions given to you from your surgeon. If you or anyone in your household have experienced Covid symptoms in the past week, please notify your surgeon or the nurse liaison at the phone number below for possible testing. Telephone instructions given to __PATIENT and asked if any additional questions and then verbalized understanding. Patient advised to call surgeon office or pre surgery nurse liaison [phone] if any additional questions.
--- NOTE | 2022-11-09 11:09 | PC.NURSE ---
PT STATES NO CHANGE IN HEALTH HX SINCE LAST INTERVIEW ON 09/24/22 EXCEPT TESTED POSITIVE FOR COVID ~10/12/22
--- NOTE | 2022-11-20 07:52 | PM.IMHP ---
H&P: HPI History of Present Illness Date/Time: 11/20/22 07:52 Chief Complaint: Right hip DJD Narrative: 72-year-old male patient of Dr. Vela who presents today for a right anterior total hip arthroplasty. Patient has been having progressively worsening symptoms in his right hip. He has had his left hip replaced in the past in 2018 which is doing well. He has tried different anti-inflammatories in the past without improvement of his symptoms. Patient is having symptoms on a daily basis that is becoming somewhat debilitating for him. Does have severe osteoarthritis of the right hip. At this point feels ready to proceed with total hip arthroplasty rather than continue nonsurgical treatment Review of Systems Review of Systems: All systems reviewed & are unremarkable except as noted in HPI and below PMFSH Past Medical History Medical History Basal cell carcinoma (BCC) of left nasal sidewall (~2000) Status post resection BPH (benign prostatic hyperplasia) Essential (primary) hypertension GERD (gastroesophageal reflux disease) Mixed hyperlipidemia MTHFR mutation Peripheral neuropathy Bilateral feet and hands Surgical History Surgical History H/O cervical spine surgery (~2014) History of appendectomy (~1973) History of cardiac catheterization July 2018 with less than 20 the 30% coronary artery plaquing of multiple vessels History of lumbar discectomy L4-L5 left-sided microdiskectomy 1992, L4-L5 right lumbar decompression 2000 Status post cataract extraction of both eyes with insertion of intraocular lens Status post left rotator cuff repair (~2004) Ureteropelvic junction obstruction, congenital Left ureteroplasty 1972 due to congenital scarring Family History Family History Father Hypertension, Onset Age: 73 Mother Hypertension, Onset Age: 71 Pulmonary fibrosis CHF (congestive heart failure) Sibling History of blood clots Pulmonary embolism Heart disease Coronary artery disease Social History Social History Smoking status: Never smoker Additional smoking assessment comments: DENIES ANY FORM OF TOBACCO USE Alcohol intake: current Drinks per week: 5 Alcohol use details: WINE Substance use: never Substance use type: does not use Lack of Transportation: No Lack of Food: Never True Current Housing: I Have Housing Concerned About Future Housing: No Difficulty Paying Gas/Electric Bills: No Difficulty Paying for Meds: No Currently Unemployed: No Education: Master's Degree or Higher Difficulty w/ Childcare or Family Care: No Living arrangements: with family Spiritual care concerns: No Meds Home Medications and Allergies Home Medications Medication Instructions Recorded Confirmed Type tamsulosin 0.4 mg capsule 0.4 mg PO DAILY #90 caps 02/12/22 11/09/22 Rx losartan 25 mg tablet 25 mg PO DAILY #90 tabs 02/16/22 11/09/22 Rx vitamin B complex 1 tablet PO DAILY 03/10/22 11/09/22 History atorvastatin 10 mg tablet See Rx Instructions .Route 08/14/22 11/09/22 Rx .COMPLEX #90 tabs famotidine 20 mg tablet 20 mg PO PRN PRN Heartburn 09/24/22 11/09/22 History magnesium oxide 400 mg PO DAILY 09/24/22 11/09/22 History naproxen sodium 220 mg tablet 220 mg PO Q12H PRN Pain 09/24/22 11/09/22 History (Aleve) timolol maleate 0.5 % eye drops 1 drp RIGHT EYE BID 09/24/22 11/09/22 History Allergies Allergy/AdvReac Type Severity Reaction Status Date / Time piroxicam Allergy Mild FLUSHING Verified 11/09/22 11:06 Exam Narrative: 72-year-old male fit alert. He is 5 ft 7 170 lb. He walks with an obvious limp. His right hip flexes to 120, internally rotates to 5? short of neutral and externally rotates to 20. He has moderate anterior
[2022-11-23] VITALS (12 sets, daily range): BP systolic 107–170; BP diastolic 46–78; PULSE 54–75; RESP 12–18; TEMP 36.6–36.9; O2SAT 96–100
--- NOTE | ~2022-11-23 | XR_ITS ---
EXAMINATION: XR hip RT 1V w AP pelvis DATE: 11/23/2022 11:45 INDICATION: Right hip arthroplasty. Postop. TECHNIQUE: An anteroposterior view of the pelvis and single view of right hip were obtained. COMPARISON: Pelvis radiograph 05/16/2018 FINDINGS: There is a total right hip arthroplasty in near-anatomic alignment. No fracture. There is a total left hip arthroplasty in near-anatomic alignment. No periprosthetic lucency to suggest looseni ng or infection. There is soft tissue gas and surgical drain near right hip, consistent with recent s urgery. IMPRESSION: 1. Bilateral total hip arthroplasties in near-anatomic alignment. Reviewed, dictated and finalized at location A.
--- NOTE | ~2022-11-23 | XR_ITS ---
EXAMINATION: XR surgery orthopedic DATE: 11/23/2022 11:22 INDICATION: Right total hip arthroplasty. TECHNIQUE: 2 intraoperative fluoroscopic views views of right hip were obtained. I was not present. F luoroscopy exposure time was 64 seconds. COMPARISON: Pelvis and right hip radiographs 11/23/2022 FINDINGS: There is a total right hip arthroplasty in near-anatomic alignment. IMPRESSION: 1. Total right hip arthroplasty in near-anatomic alignment. Reviewed, dictated and finalized at location A.
[2022-11-23] MEDS: LACTATED RINGERS 1,000 ML 30 ML IV CONT ×3 (06:45→12:26)
[2022-11-23] MEDS: FAMOTIDINE 20 MG/2 ML VIAL IV PUSH ×2 (06:59)
[2022-11-23] MEDS: TRANEXAMIC ACID 1,000MG/ISO100 1,000 MG/100 ML BAG 200 MG IVPB (07:00)
[2022-11-23] MEDS: ACETAMINOPHEN 500 MG TABLET 1000 MG PO ×4 (07:00→23:16)
--- NOTE | 2022-11-23 07:16 | WPDHPUPDATE1 ---
History and Physical Update Update Date/Time: 11/23/22 07:16 History and Physical has been reviewed, including an updated exam of the patient. There are NO changes in the patient's condition. Risks, benefits, and alternatives have been discussed and questions answered. Patient agrees to proceed with procedure.
--- NOTE | 2022-11-23 07:21 | WPDANESEPPF ---
Anes - Initial Pre Proc Eval Procedure: Operation Date: 11/23/22 07:30 Proposed Procedures p Right Total Hip Arthroplasty, Anterior Approach - Cody Eduardo MD Date/Time: 11/23/22 07:21 Surgeon: Cody Eduardo MD Pre Op Diagnosis: O.A. Rt Hip Patient Data Age: 72 Gender: M Height: 1.73 m Weight: 77.3 kg Last Vital Signs Temp 36.7 C 09/24/22 12:43 Pulse 46 L 09/24/22 12:43 Resp 18 09/24/22 12:43 BP 133/76 09/24/22 12:43 Pulse Ox 99 09/24/22 12:43 O2 Del Method Room Air 09/24/22 12:43 Allergies Allergy/AdvReac Type Severity Reaction Status Date / Time piroxicam Allergy Mild FLUSHING Verified 11/09/22 11:06 Home Medications Medication Instructions Recorded Confirmed Type tamsulosin 0.4 mg capsule 0.4 mg PO DAILY #90 caps 02/12/22 11/09/22 Rx losartan 25 mg tablet 25 mg PO DAILY #90 tabs 02/16/22 11/09/22 Rx vitamin B complex 1 tablet PO DAILY 03/10/22 11/09/22 History atorvastatin 10 mg tablet See Rx Instructions .Route 08/14/22 11/09/22 Rx .COMPLEX #90 tabs famotidine 20 mg tablet 20 mg PO PRN PRN Heartburn 09/24/22 11/09/22 History magnesium oxide 400 mg PO DAILY 09/24/22 11/09/22 History naproxen sodium 220 mg tablet 220 mg PO Q12H PRN Pain 09/24/22 11/09/22 History (Aleve) timolol maleate 0.5 % eye drops 1 drp RIGHT EYE BID 09/24/22 11/09/22 History Patient hx anesthesia problems: none Family hx anesthesia problems: none Results Review: All pre-operative results and documents have been reviewed as part of the pre-operative evaluation. [facility] Past Medical History Medical History Basal cell carcinoma (BCC) of left nasal sidewall (~2000) Status post resection BPH (benign prostatic hyperplasia) Essential (primary) hypertension GERD (gastroesophageal reflux disease) Mixed hyperlipidemia MTHFR mutation Peripheral neuropathy Bilateral feet and hands Surgical History Surgical History H/O cervical spine surgery (~2014) History of appendectomy (~1973) History of cardiac catheterization July 2018 with less than 20 the 30% coronary artery plaquing of multiple vessels History of lumbar discectomy L4-L5 left-sided microdiskectomy 1992, L4-L5 right lumbar decompression 2000 Status post cataract extraction of both eyes with insertion of intraocular lens Status post left rotator cuff repair (~2004) Ureteropelvic junction obstruction, congenital Left ureteroplasty 1972 due to congenital scarring Family History Family History Father Hypertension, Onset Age: 73 Mother Hypertension, Onset Age: 71 Pulmonary fibrosis CHF (congestive heart failure) Sibling History of blood clots Pulmonary embolism Heart disease Coronary artery disease Social History Social History Smoking status: Never smoker Additional smoking assessment comments: DENIES ANY FORM OF TOBACCO USE Alcohol intake: current Drinks per week: 5 Alcohol use details: WINE Substance use: never Substance use type: does not use Lack of Transportation: No Lack of Food: Never True Current Housing: I Have Housing Concerned About Future Housing: No Difficulty Paying Gas/Electric Bills: No Difficulty Paying for Meds: No Currently Unemployed: No Education: Master's Degree or Higher Difficulty w/ Childcare or Family Care: No Living arrangements: with family Spiritual care concerns: No Anes - Eval Final PreProcedure Day of Procedure 11/23/22 07:21 Patient weight: normal Heart: regular rate and rhythm Lungs: clear to auscultation Airway: Mallampati scale class II Neurological: alert and oriented Last oral intake: >/= 8 hours ASA classification: II Emergent: no Anesthetic plan: proceed Anesthesia type and monitoring: general E
[2022-11-23] MEDS: ceFAZolin 2 GM/D5W 50 ML 2 GM/50 ML BAG IVPB (07:37)
[2022-11-23] MEDS: ceFAZolin SODIUM 1 GM VIAL 3 GM (08:23)
[2022-11-23] MEDS: ceFAZolin SODIUM 1 GM VIAL 2 GM IV PUSH (11:06)
[2022-11-23] MEDS: TRANEXAMIC ACID 1,000 MG/10 ML AMPUL 1000 MG IV PUSH (11:06)
[2022-11-23] MEDS: KETOROLAC 15 MG/ML VIAL (*BKC) IV PUSH ×2 (11:18→20:49)
--- NOTE | 2022-11-23 11:41 | W.PM.PROC2 ---
Procedure Note - Detailed Date of Procedure 11/23/22 Pre-op Diagnosis O.A. Rt Hip Post-op Diagnosis Same Procedure Performed Right total hip arthroplasty Surgeon Cody Eduardo MD Ladies Attendant Viet Anesthesia General Description of Procedure Patient was brought to the operating room and general anesthesia was administered. He received 2 g of Ancef weight based vancomycin 1 g of tranexamic acid preoperatively. Feet were padded and boots applied [facility] in the right hip prepped draped usual fashion. A 10 cm longitudinal incision was made starting 3 cm lateral to the ASIS. Dissection was carried down to the fascia over the tensor fascia jg. We identified 1 crossing branch of lateral femoral circumflex nerve bundle that traversed the incision proximally and we protected this throughout the procedure. Fascia was incised elevated off the anterior 1/2 the TFL muscle. Interval between tensor fascia jg and rectus femoris developed and the ascending lateral femoral circumflex vessels and its branches were ligated with suture divided. Capsule anterior to femoral neck was exposed and retractor placed hip abducted internally rotated and the gluteus minimus elevated off the lateral capsule. Inverted T after capsulotomy was performed and a femoral neck osteotomy made according to preoperative templating. There were large circumferential osteophytes around the femoral head. A wedge of lateral femoral neck was removed and the head was removed and measured 53 mm in diameter. The acetabulum was except exposed. There was wear and eburnation of the posterior superior acetabular wall. Labrum was excised. The leg was externally rotated extended and the interval between conjoined tendon and piriformis was incised which allowed conjoined tendon to recess a little bit. With the leg back horizontal traction external rotation the acetabulum was prepared. We reamed to 52 mm. We trialed with the 52 cup in I felt that optimally we would deep in the reaming another 3 mm which we did with the 51 Reamer and we impacted the 52 mm pinnacle cup which was placed at 40? of abduction and version such that the anterior edge of the shell was just under the anterior acetabular rim. An excellent Press-Fit was achieved and full seating accomplished. Single screw placed in the ilium. 36 mm inner diameter acetabular liner was fully seated. Leg was externally rotated and extended with the table hook posing the proximal femur which was broached to a size 6. We trialed and had appropriate soft tissue tension with the-2 head which matched his preoperative template and this gave equal leg lengths according to line across the obturator foramina relative to the lesser trochanters we saw that the size 6 had a little bit of torsional plate and under fluoro it looked like had room to go up 1 size and as predicted on the preoperative template the femur except the size 7 which was a very tight fit. No torsional wiggle. Final calcar planing was performed and we trialed and the -2 was appropriate him the 1.5 was a bit tight. We chose the high offset size 7 Actis stem which was fully seated without difficulty the tight fit. His bone quality was very good both on the acetabular and femoral sides. We trialed again the-2 head appropriate soft tissue tension the 1.5 was too tight. The-2 stainless steel head was impacted onto the clean and dried trunnion. Wound irrigated again with antibiotic solution reduced stability reconfirmed. Art capsulotomy reapproximated with 2. Vicryl, local anesthetic cocktail injected the soft tissues. Fascia was repaired with 1. Vicryl respecting the traversing branch of lateral femoral cutaneous nerve proximally skin closed with 2-0 subcutaneous Vicryl over a subcu drain and glue EBL was 850 and 375 given back as Cell Saver. Additional 2 g of Ancef 1 g of tranexamic acid were given at time wound closure. No known complications. Estimated B
--- NOTE | 2022-11-23 11:53 | PM.OP ---
Procedure Note - Brief Procedure Note - Brief Date of procedure: 11/23/22 O.A. Rt Hip Procedure performed: Right total hip arthroplasty Surgeon: BEATRIZ Nicholson Description of procedure: 72-year-old male who underwent right anterior total hip arthroplasty on 11/23. Id I was involved in the procedure including positioning the patient on the operating table, as well and is 1st assisting through time of surgery. Total time spent was 4hours
[2022-11-23] MEDS: fentaNYL CITRATE INJ (*CRX) 100 MCG/2 ML VIAL 25 MCG IV PUSH ×3 (12:25→12:43)
--- NOTE | 2022-11-23 13:37 | ADMGEN ---
This patient, Camilo Gupta, was admitted to Medical Room 346-01. Report received from NIC Osman. Patient/family oriented to hospital policies and general routines including ID bracelet, bed and alarms, visiting hours, pain management, procedures, bathroom and other care routines, personal items, smoking policy, room service/diet, and visiting hours. Information on how to activate the Rapid Response Team has been discussed. Patient/Family are encouraged to report perceived risks to care and to ask questions if they do not understand what they are told or what they should do.
[2022-11-23] MEDS: SODIUM CHLORIDE 0.9% IV 1,000 ML 125 ML IV CONT (13:49)
[2022-11-23] MEDS: ceFAZolin 1 GM/NS 50 ML 1 GM/50 ML BAG IVPB ×2 (16:21→23:17)
[2022-11-23] MEDS: TAMSULOSIN HCL 0.4 MG CAPSULE PO (18:38)
[2022-11-23] MEDS: SENNA/DOCUSATE SODIUM TABLET 2 TAB PO (18:38)
[2022-11-23] MEDS: FAMOTIDINE 20 MG TABLET PO (20:49)
[2022-11-23] MEDS: TIMOLOL MALEATE 0.5% OP SOLN 5 ML BOTTLE 1 DROP RIGHT EYE (20:50)
[2022-11-24 02:19] VITALS: BP 136/66; PULSE 86; RESP 18; TEMP 36.9; O2SAT 98
[2022-11-24] MEDS: KETOROLAC 15 MG/ML VIAL (*BKC) IV PUSH (05:10)
[2022-11-24 05:50] LABS: Basophils Percent Auto 0.1 % (0.2-1.2); Eosinophils Percent Auto 0.1 % (0-4.4); Hematocrit 33.6 % (42.0-52.0); Immature Granulocyte Absolute 0.04 K/mm3 (0.00-0.031); Immature Granulocyte Percent A 0.3 % (0-0.5); Immature Platelet Fraction Pct 8.2 % (0.9-11.2); Lymphocytes Absolute Auto 0.65 K/mm3 (0.9-3.2); Lymphocytes Percent Auto 5.5 % (18.3-44.2); Mean Corpuscular HGB Conc 32.7 g/dl (32-36); Mean Corpuscular Hemoglobin 29.3 pg (26-34); Mean Corpuscular Volume 89.4 fl (80-100); Mean Platelet Volume 10.8 fl (7.4-10.4); Monocytes Percent Auto 8.6 % (2.6-8.5); Neutrophils Absolute Auto 10.1 K/mm3 (1.3-6.7); Neutrophils Percent Auto 85.4 % (45.5-73.1); Platelet Count Result 129 k/mm3 (150-375); Red Blood Count 3.76 M/mm3 (4.6-6.20); Red Cell Distribution Width 13.9 % (11.5-14.5); White Blood Count 11.8 K/mm3 (4.5-10.0)
[2022-11-24 05:56] LABS: Anion Gap 2 mmol/L (8-16); Blood Urea Nitrogen 12 mg/dL (9-20); Calcium 8.1 mg/dL (8.4-10.2); Carbon Dioxide 28 mmol/L (22-30); Chloride 108 mmol/L (98-107); Estimated CRCL calculation 78 ml/min; Estimated Glomerular Filt Rate > 60; Glucose 120 mg/dL (65-110); Sodium 138 mmol/L (137-145)
[2022-11-24 06:01] VITALS: BP 111/59; PULSE 61; RESP 16; TEMP 36.9; O2SAT 97
[2022-11-24] MEDS: ACETAMINOPHEN 500 MG TABLET 1000 MG PO (06:08)
[2022-11-24] MEDS: ceFAZolin 1 GM/NS 50 ML 1 GM/50 ML BAG IVPB (06:09)
--- NOTE | 2022-11-24 06:25 | PM.PNORT ---
Subjective Subjective Date/Time Seen: 11/24/22 06:25 Interval history: Postop day 1 patient is alert. He is afebrile vital signs are stable. Morning labs are noted. Hemoglobin is 11.0. Chem panel was all normal. Patient will have his drain removed this morning and dressing change. Neurovascularly he is intact. He has not been taking any narcotics. He is comfortable with just Tylenol. He is up walking with therapy yesterday. He has been to the restroom multiple times overnight urinating well. Overall patient is comfortable. He will work with therapy this morning then be discharged home late this morning. Objective Data Vital Signs Vital Signs: Vital Signs - 24 hr 11/23/22 06:30 11/23/22 11:46 11/23/22 12:00 Temperature 36.9 C 36.9 C Pulse Rate 54 L 58 L 59 L Respiratory Rate 16 13 14 Blood Pressure 170/78 H 107/46 L 130/59 L Pulse Oximetry 98 100 99 Oxygen Delivery Room Air Simple Face Mask Simple Face Mask Oxygen Flow Rate 6 6 11/23/22 12:15 11/23/22 12:30 11/23/22 12:45 Temperature Pulse Rate 60 58 L 58 L Respiratory Rate 15 13 12 Blood Pressure 129/60 122/61 121/63 Pulse Oximetry 96 99 100 Oxygen Delivery Room Air Nasal Cannula Nasal Cannula Oxygen Flow Rate 2 2 11/23/22 13:30 11/23/22 13:45 11/23/22 14:38 Temperature 36.6 C 36.6 C Pulse Rate 57 L 59 L Respiratory Rate 16 16 Blood Pressure 136/66 130/67 Pulse Oximetry 100 100 Oxygen Delivery Room Air Oxygen Flow Rate 11/23/22 14:45 11/23/22 13:00 11/23/22 18:41 Temperature 36.6 C Pulse Rate 64 75 Respiratory Rate 18 16 Blood Pressure 131/70 133/75 Pulse Oximetry 100 100 97 Oxygen Delivery Nasal Cannula Oxygen Flow Rate 2 11/23/22 13:30 11/23/22 22:33 11/24/22 02:19 Temperature 36.9 C 36.9 C Pulse Rate 68 86 Respiratory Rate 16 18 Blood Pressure 131/62 136/66 Pulse Oximetry 100 96 98 Oxygen Delivery Room Air Oxygen Flow Rate 11/24/22 06:01 Temperature 36.9 C Pulse Rate 61 Respiratory Rate 16 Blood Pressure 111/59 L Pulse Oximetry 97 Oxygen Delivery Oxygen Flow Rate Intake/Output Intake/Output: Intake & Output 11/21/22 11/22/22 11/23/22 11/24/22 23:59 23:59 23:59 23:59 Intake Total 790 1000 Output Total 230 1550 Balance 560 -550 Meds/Results Medications: Active Medications Generic Name Dose Route Start Last Admin Trade Name Freq PRN Reason Stop Dose Admin Acetaminophen 1,000 mg 11/23/22 12:56 11/24/22 06:08 Acetaminophen 500 Mg Tablet PO 1,000 mg Q6HR GABRIEL Administration Apixaban 2.5 mg 11/24/22 09:00 Apixaban 2.5 Mg Tablet PO 12/28/22 21:01 Q12HR GABRIEL Atorvastatin Calcium 10 mg 11/24/22 09:00 Atorvastatin 10 Mg Tablet PO QAM GABRIEL Celecoxib 200 mg 11/24/22 09:00 Celecoxib 200 Mg Capsule PO DAILY GABRIEL Cephalexin HCl 500 mg 11/24/22 12:00 Cephalexin 500 Mg Capsule PO Q6HR GABRIEL Famotidine 20 mg 11/23/22 21:00 11/23/22 20:49 Famotidine 20 Mg Tablet PO 20 mg Q12HR GABRIEL Administration Hydroxyzine HCl 50 mg 11/23/22 12:56 Hydroxyzine Hcl 25 Mg Tablet PO Q4H PRN Itching Cefazolin Sodium 1 gm in 50 mls @ 100 mls/hr 11/23/22 15:00 11/24/22 06:09 Ancef 1 Gm/Ns 50 Ml IVPB 11/24/22 07:29 100 mls/hr Q8H GABRIEL Administration Vancomycin HCl 1,000 mg in 250 mls @ 250 mls/hr 11/23/22 19:00 11/23/22 19:39 Vancomycin 1,000 Mg/D5w 250 Ml IVPB 11/24/22 07:59 Infused Q12H GABRIEL Infusion Losartan Potassium 25 mg 11/24/22 09:00 Losartan Potassium 25 Mg Tablet PO DAILY GABRIEL Morphine Sulfate 2 mg 11/23/22 12:56 Morphine Sulfate (*Crx) 2 Mg/Ml Inj IV PUSH Q3H PRN Pain Rated 7-10 Naloxone HCl 0.1 mg 11/23/22 12:56 Naloxone Hcl 0.4 Mg/Ml Vial IV PUSH Q2M PRN Opiate Reversal Ondansetron HCl 4 mg 11/23/22 12:56 Ondansetron Inj 4 Mg/2 Ml Vial IV PUSH Q4H PRN Nausea And Vomiting Oxycodone HCl 5 mg 11/23/22 12:56 Ox
--- NOTE | 2022-11-24 06:28 | PM.DS ---
DS: Admitting Diagnosis Discharge Date 11/24 Admitting Diagnosis Right hip DJD DS: Discharge Diagnosis Discharge Diagnosis (1) Hip arthritis: Code(s): M16.10 - Unilateral primary osteoarthritis, unspecified hip Status: Acute DS: Summary Hospital Course Hospital Course: 72-year-old male who underwent right anterior total hip arthroplasty on 11/23. Underwent the procedure without complications. Postoperatively he has been afebrile vital signs are stable. Neurovascularly he is intact. He is weight-bearing as tolerated. He is on Eliquis for DVT prophylaxis. Overall pain is well controlled with just Tylenol. Patient is not taking any narcotics. He is on Celebrex for 10 days for heterotopic bone formation prophylaxis. Will also be on Pepcid twice a day while he is taking the Celebrex. He will go home with a 1 week course of Keflex. He also go home on Senokot MiraLax. Patient was advised to keep leg elevated home prevent swelling. The day of surgery patient was up walking with physical therapy in comfortable. He has been urinating well. Patient was advised any questions or concerns he is to call the office otherwise we will see him at his appointed date. Time Spent with Patient Time attestation: Total time spent providing and/or coordinating discharge services: DS: Data Data Completed and Pending Labs on day of discharge: Labs from last 24 hours 11/24/22 11/23/22 05:32 06:57 WBC 11.8 H RBC 3.76 L Hgb 11.0 L D Hct 33.6 L MCV 89.4 MCH 29.3 MCHC 32.7 RDW 13.9 Plt Count 129 L MPV 10.8 H Immature Gran % (Auto) 0.3 Neut % (Auto) 85.4 H Lymph % (Auto) 5.5 L [place] % (Auto) 8.6 H Eos % (Auto) 0.1 Baso % (Auto) 0.1 L Lymph # (Auto) 0.65 L [place] # (Auto) 1.0 H Eos # (Auto) 0.0 Baso # (Auto) 0.0 Abs Immat Gran (auto) 0.04 H Absolute Neuts (auto) 10.1 H Absolute Nucleated RBC 0.0 Nucleated RBC % 0.0 % Immature Plt Fraction 8.2 Sodium 138 Potassium 4.0 Chloride 108 H Carbon Dioxide 28 Anion Gap 2 L BUN 12 Creatinine 0.70 Estim Creat Clear Calc 78 Estimated GFR > 60 Glucose 120 H Calcium 8.1 L Blood Type O Positive Antibody Screen Negative Discharge Plan Discharge Patient Disposition: Home, Self-Care Discharge Instructions: CODY EDUARDO M.D [facility], [place] [id number] [place] [address] POST-OPERATIVE DISCHARGE INSTRUCTIONS ANTERIOR TOTAL HIP ARTHROPLASTY 1. Move toes/feet up and down every hour while awake. 2. Be up walking every hour while awake. 3. Use cane in hand opposite of side of hip surgery or walker as comfort allows. Avoid sitting in a chair unless eating, receiving visitors or using the toilet. 4. When resting, lie on back with leg elevated above heart to minimize swelling. Significant swelling could indicate a blood clot and if this occurs, call the office (or go to the ER) to have a venous ultrasound performed. 5. Wound Care: Keep dry sponge on wound for 2 weeks. Use minimal tape. 6. Follow weight bearing status as instructed. 7. May shower with dressing off. Stand Alone Forms: General Discharge Instructions Follow-up/Referrals: Cody Eduardo MD [Physician] - Keep Reg. Scheduled Appt. Discharge Medications: New Eliquis 2.5 mg Tablet 2.5 mg PO Q12HR Qty: 70 0RF sennosides-docusate sodium [Senokot-S] 8.6-50 mg Tablet 2 tab-cap PO BID Qty: 60 0RF cephalexin 500 mg Capsule 500 mg PO Q6HR Qty: 28 0RF polyethylene glycol 3350 [Miralax] 17 gram Powder In Packet 17 g PO QAM Qty: 30 0RF Continued timolol maleate 0.5 % drops 1 drp RIGHT EYE BID famotidine 20 mg tablet 20 mg PO PRN PRN (Reason: Heartburn) magnesium oxide 400 mg magnesium Tablet 400 mg PO DAILY vitamin B complex Tablet 1 tablet PO DAILY Patient Comments: pt states he takes this seasonal
--- NOTE | 2022-11-24 08:20 | WPDANESPN ---
Anes - Prog Note Post-Op Date/Time: 11/24/22 08:20 Cardiovascular status: normal Respiratory status: normal Airway patency: baseline Mental status: baseline Post-Op hydration status: normal Vital Signs: Last Vital Signs Temp 36.9 C 11/24/22 06:01 Pulse 61 11/24/22 06:01 Resp 16 11/24/22 06:01 BP 111/59 L 11/24/22 06:01 Pulse Ox 97 11/24/22 06:01 O2 Del Method Room Air 11/23/22 14:38 O2 Flow Rate 2 11/23/22 13:00 Pain Score (VAS): 0 I/O: Intake & Output 11/23/22 11/24/22 11/24/22 23:59 07:59 15:59 Intake Total 590 1000 Output Total 1550 Balance 590 -550 Laboratory Tests 11/24/22 05:32 11/24/22 05:32 11/23/22 11/24/22 06:57 05:32 WBC 11.8 H RBC 3.76 L Hgb 11.0 L D Hct 33.6 L MCV 89.4 MCH 29.3 MCHC 32.7 RDW 13.9 Plt Count 129 L MPV 10.8 H Immature Gran % (Auto) 0.3 Neut % (Auto) 85.4 H Lymph % (Auto) 5.5 L [place] % (Auto) 8.6 H Eos % (Auto) 0.1 Baso % (Auto) 0.1 L Lymph # (Auto) 0.65 L [place] # (Auto) 1.0 H Eos # (Auto) 0.0 Baso # (Auto) 0.0 Abs Immat Gran (auto) 0.04 H Absolute Neuts (auto) 10.1 H Absolute Nucleated RBC 0.0 Nucleated RBC % 0.0 % Immature Plt Fraction 8.2 Sodium 138 Potassium 4.0 Chloride 108 H Carbon Dioxide 28 Anion Gap 2 L BUN 12 Creatinine 0.70 Estim Creat Clear Calc 78 Estimated GFR > 60 Glucose 120 H Calcium 8.1 L Antibody Screen Negative Post-procedural complaints: none Patient Feedback: Patient satisfied with anesthetic care.
[2022-11-24] MEDS: ATORVASTATIN 10 MG TABLET PO (09:11)
[2022-11-24] MEDS: TAMSULOSIN HCL 0.4 MG CAPSULE PO (09:11)
[2022-11-24] MEDS: FAMOTIDINE 20 MG TABLET PO (09:12)
[2022-11-24] MEDS: SENNA/DOCUSATE SODIUM TABLET 2 TAB PO (09:12)
[2022-11-24] MEDS: TIMOLOL MALEATE 0.5% OP SOLN 5 ML BOTTLE 1 DROP RIGHT EYE (09:12)
[2022-11-24] MEDS: LOSARTAN POTASSIUM 25 MG TABLET PO (09:12)
[2022-11-24] MEDS: CELECOXIB 200 MG CAPSULE PO (09:12)
[2022-11-24] MEDS: APIXABAN 2.5 MG TABLET PO (09:12)
[2022-11-24] MEDS: polyethylene glycoL 3350 17 GM POWD.PACK PO (09:13)
== END 2022-11-24 11:30 | disposition home or self-care (01) ==
LOC: ANHSURGERY 05:59 → ANH3MED 13:12
PROVIDERS: Physician Assistant Surgical; PCP Emergency Medicine; Visit Provider Orthopaedic Surgery
PROC: (CPT 27130; principal; 2022-11-23 07:30)
DX: M16.11 Unilateral primary osteoarthritis, right hip (principal); I10 Essential (primary) hypertension; E78.2 Mixed hyperlipidemia; E72.12 Methylenetetrahydrofolate reductase deficiency; K21.9 Gastro-esophageal reflux disease without esophagitis; G62.9 Polyneuropathy, unspecified; N40.0 Benign prostatic hyperplasia without lower urinary tract symptoms
CPT/HCPCS: 27130; 36415; 73501; 80048; 85025; 85055; 86850; 86900; 86901; 97110; 97161; 97165; 97530; 97535; 99199; A9270; C1776; J0171; J0690; J1100; J1170; J1885; J2270; J2405; J2704; J2795; J3010; J3370; J7030; J7120

== ENCOUNTER 2023-09-01 07:41 | Outpatient (CLI) | payer MEDICARE, SELFPAY ==
--- NOTE | ~2023-09-01 | MR_ITS ---
MRI of the brain Clinical History: Headache Technique: Axial and sagittal T1-weighted images were acquired. These were followed by axial T2-weigh sam, diffusion weighted, gradient, and FLAIR images.. Following intravenous administration of 15 cc M ultiHance gadolinium, T1-weighted fat-sat imaging was performed in the axial and coronal planes. Findings: No abnormal signal seen in the brain parenchyma. No acute infarct, internal hemorrhage, or mass lesion. Ventricles and subarachnoid spaces are unremarkable. Orbits are unremarkable. Paranasal sinuses and m astoid air cells are clear. Major intracranial flow voids are intact. Sagittal midline structures are intact. No abnormal postcontrast enhancement identified. IMPRESSION: Normal exam. Reviewed, dictated and finalized at location . ICAL SCHEDULER IMPRESSION: Normal exam.
--- NOTE | ~2023-09-01 | MR_ITS ---
EXAMINATION: MR cervical spine wo/w con DATE: 09/01/2023 08:53 INDICATION: Spinal stenosis, cervical region. TECHNIQUE: Magnetic resonance imaging (MRI) of the cervical spine was performed without and with 15 m L MultiHance intravenous contrast. COMPARISON: Cervical spine MRI 09/18/2012 FINDINGS: There is 8 degrees levocurvature of upper thoracic spine. Vertebral body heights are normal . There are changes of anterior fusion procedure from C3 to C7 with anterior plate and screws. There is healed interbody bone graft from C3 to C6. There is increased T2-weighted signal intensity in the spinal cord from C3-C4 through C6-C7, consistent with myelomalacia. The following disc levels are spe cifically discussed: C2-C3: The disc does not extend beyond the endplate margin. There is moderate right and severe left u ncovertebral joint osteoarthritis. There is moderate right and severe left facet joint osteoarthritis . There is mild bilateral neural foraminal stenosis. There is mild central canal stenosis. C3-C4: There is moderate right and mild left uncovertebral joint hypertrophy. There is no facet joint osteoarthritis. There is mild bilateral neural foraminal stenosis. There is no central canal stenosi s. C4-C5: There is moderate bilateral uncovertebral joint hypertrophy. There is mild bilateral facet bob nt osteoarthritis. There is mild bilateral neural foraminal stenosis. There is no central canal steno sis. C5-C6: There is severe bilateral uncovertebral joint hypertrophy. There is mild bilateral facet joint osteoarthritis. There is mild lateral neural foraminal stenosis. There is no central canal stenosis. C6-C7: There is severe bilateral uncovertebral joint hypertrophy. There is moderate bilateral facet j oint osteoarthritis. There is moderate bilateral neural foraminal stenosis. There is mild central can al stenosis. C7-T1: There is a right foraminal protrusion. There is no uncovertebral joint osteoarthritis. There i s severe bilateral facet joint osteoarthritis. There is mild right and moderate left neural foraminal stenosis. There is no central canal stenosis. IMPRESSION: 1. Moderate cervical spondylosis. 2. Anterior fusion procedure from C3 to C7. 3. Myelomalacia from C3-C4 to C6-C7. Reviewed, dictated and finalized at location E. EEN MANAGER
== END 2023-09-01 07:42 | disposition home or self-care (01) ==
PROVIDERS: PCP Emergency Medicine; Visit Provider Emergency Medicine
DX: R51.9 Headache, unspecified (principal); M48.02 Spinal stenosis, cervical region; M47.892 Other spondylosis, cervical region; Z98.1 Arthrodesis status
CPT/HCPCS: 70553; 72156; A9577

== ENCOUNTER 2023-09-06 09:54 | Outpatient (CLI) | payer MEDICARE, SELFPAY | END 2023-09-06 09:55 | disposition home or self-care (01) | PROVIDERS: PCP Emergency Medicine; Visit Provider Emergency Medicine | DX: H91.90 Unspecified hearing loss, unspecified ear (principal) | CPT/HCPCS: 92557; 92567 ==

== ENCOUNTER 2023-09-21 12:19 | Emergency (ER) | payer MEDICARE, SELFPAY ==
[2023-09-21] VITALS (8 sets, daily range): BP systolic 121–161; BP diastolic 69–78; PULSE 45–52; RESP 16–20; TEMP 36.4–36.9; O2SAT 95–100
--- NOTE | ~2023-09-21 | XR_ITS ---
EXAMINATION: XR chest 2V DATE: 09/21/2023 12:51 INDICATION: Chest pain. TECHNIQUE: Frontal and lateral views of the chest were obtained. COMPARISON: Chest 2 views 10/18/2020 FINDINGS: There is no pneumonia, pleural effusion, or pneumothorax. The heart size is normal. There a re changes of anterior fusion procedure in cervical spine. IMPRESSION: 1. No acute cardiopulmonary disease. Reviewed, dictated and finalized at location A. AGE SMASHER
--- NOTE | 2023-09-21 12:20 | ECG_ITS ---
Measurements Intervals [place] Rate: 44 P: 24 NV: 139 QRS: 39 QRSD: 86 T: 44 QT: 434 QTc: 375 Interpretive Statements SINUS BRADYCARDIA COMPARED TO ECG 09/24/2022 13:17:09 NO SIGNIFICANT CHANGES Electronically Signed On 09-21-2023 12:47:52 SPRAY MACHINE OPERATOR by Sadaf Watkins M.D.
--- NOTE | 2023-09-21 12:39 | ED.CHESTPAIN ---
HPI - Chest Pain General Chief Complaint: Chest Pain <DALE Chatman Last Filed: 09/21/23 12:49> Stated Complaint: Chest pain <DALE Chatman Last Filed: 09/21/23 12:49> Time Seen by Provider: 09/21/23 12:34 <DALE Chatman Last Filed: 09/21/23 12:49> Focused HPI: Patient is a 73-year-old male, past medical history of GERD, hypertension, hyperlipidemia, who presents the ED with report of palpitations and chest discomfort. Patient reports he began noticing palpitations around 9:30 a.m. this morning. He states he was feeling his pulse on his wrist and felt as though he had 3 normal beats, 1 skipped beat. He began having some mild midsternal chest discomfort, which has continued to worsen since then prompted his presentation. He denies any shortness of breath associated with the pain, pleuritic pain, nausea, vomiting. Patient reports he had a cardiac event several years ago and underwent cardiac catheterization, but did not require any stents. GENERAL: Mildly uncomfortable-appearing, well-nourished, and in no acute distress. HEAD: Normocephalic, atraumatic. CHEST: Clear to auscultation. ?No respiratory distress. HEART: Bradycardic with regular rhythm.? NEURO: ?Alert and oriented x3. Patient screened in triage and initial orders placed.? ?Additional care and disposition to be based upon?diagnostic testing and treatment. <DALE Chatman Last Filed: 09/21/23 12:49> Source: patient <DALE Chatman Last Filed: 09/21/23 12:49> Mode of arrival: ambulatory <DALE Chatman Last Filed: 09/21/23 12:49> Limitations: no limitations <DALE Chatman Last Filed: 09/21/23 12:49> Related Data Home Medications: Home Medications Medication Instructions Recorded Confirmed vitamin B complex 1 tablet PO DAILY 03/10/22 08/24/23 famotidine 20 mg tablet 20 mg PO PRN PRN Heartburn 09/24/22 08/24/23 magnesium oxide 400 mg PO DAILY 09/24/22 08/24/23 timolol maleate 0.5 % eye drops 1 drp RIGHT EYE BID 09/24/22 08/24/23 <Sharron Arreguin PA-C - Last Filed: 09/21/23 12:49> Allergies/Adverse Reactions: Allergies Allergy/AdvReac Type Severity Reaction Status Date / Time piroxicam Allergy Mild FLUSHING Verified 08/24/23 09:30 <Sharron Arreguin PA-C - Last Filed: 09/21/23 12:49> Review of Systems Review of Systems: CONSTITUTIONAL: Denies fever, chills, or sweats. CARDIOVASCULAR: Chest pain-resolved denies palpitations, or edema. RESPIRATORY: Denies cough or dyspnea. GASTROINTESTINAL: Denies abdominal pain, nausea, vomiting, or diarrhea. GENITOURINARY: Denies dysuria or hematuria. SKIN: Denies rash or itching. MUSCULOSKELETAL: Denies back pain, joint pain, or myalgia. NEUROLOGIC: Denies headache, numbness, dizziness, or weakness. PSYCHIATRIC: Denies anxiety or depression. <Weston Richardson MD - Last Filed: 09/21/23 22:22> [facility] Past Medical History Medical History: Medical History Basal cell carcinoma (BCC) of left nasal sidewall (~2000) Status post resection BPH (benign prostatic hyperplasia) Essential (primary) hypertension GERD (gastroesophageal reflux disease) Mixed hyperlipidemia MTHFR mutation Peripheral neuropathy Bilateral feet and hands <Sharron Arreguin PA-C - Last Filed: 09/21/23 12:49> Surgical History Surgical History: Surgical History H/O cervical spine surgery (~2014) History of appendectomy (~1973) History of cardiac catheterization July 2018 with less than 20 the 30% coronary artery plaquing of multiple vessels History of lumbar discectomy L4-L5 left-sided microdiskectomy 1992, L4-L5 right lumbar decompression 2000 Status post cataract extraction of both eyes with insertion of intraocular lens Status post left rotator cuff repair (
[2023-09-21 13:01] LABS: INR 1.1; Prothrombin Time 14.3 Seconds (11.1-14.7)
[2023-09-21 13:02] LABS: Partial Thromboplastin Time 26.9 SECONDS (22.3-36.8)
[2023-09-21 13:11] LABS: Basophils Percent Auto 0.5 % (0.2-1.2); Eosinophils Absolute Auto 0.1 K/mm3 (0-0.3); Eosinophils Percent Auto 2.5 % (0-4.4); Hematocrit 43.8 % (42.0-52.0); Hemoglobin 14.6 g/dL (14.0-18.0); Immature Granulocyte Absolute 0.01 K/mm3 (0.00-0.031); Immature Granulocyte Percent A 0.2 % (0-0.5); Lymphocytes Absolute Auto 0.84 K/mm3 (0.9-3.2); Lymphocytes Percent Auto 15.2 % (18.3-44.2); Mean Corpuscular HGB Conc 33.3 g/dl (32-36); Mean Corpuscular Hemoglobin 29.3 pg (26-34); Mean Platelet Volume 11.5 fl (7.4-10.4); Monocytes Absolute Auto 0.5 K/mm3 (0.1-0.6); Monocytes Percent Auto 9.8 % (2.6-8.5); Neutrophils Percent Auto 71.8 % (45.5-73.1); Platelet Count Result 173 k/mm3 (150-375); Red Blood Count 4.98 M/mm3 (4.6-6.20); Red Cell Distribution Width 13.4 % (11.5-14.5); White Blood Count 5.5 K/mm3 (4.5-10.0)
[2023-09-21 13:13] LABS: Alanine Aminotransferase 20 U/L (6-50); Albumin Level 4.2 g/dL (3.5-5.1); Alkaline Phosphatase 71 U/L (38-126); Anion Gap 7 mmol/L (8-16); Aspartate Amino Transferase 26 U/L (17-59); Bilirubin,Total 1.4 mg/dL (0.2-1.3); Blood Urea Nitrogen 16 mg/dL (9-20); Calcium 9.4 mg/dL (8.4-10.2); Carbon Dioxide 26 mmol/L (22-30); Chloride 105 mmol/L (98-107); Estimated CRCL calculation 68 ml/min; Estimated Glomerular Filt Rate > 60; Glucose 116 mg/dL (65-110); Lipase 64 U/L (23-300); Potassium 4.1 mmol/L (3.4-5.0); Sodium 138 mmol/L (137-145)
[2023-09-21 13:25] LABS: Troponin I < 0.012 ng/mL (0.000-0.034)
[2023-09-21 13:31] LABS: Magnesium 2.2 mg/dL (1.6-2.3)
[2023-09-21] MEDS: BELLADONNA ALK/PHENOB ELIX 10 ML, MAG HYDROX/ALUMINUM HYD/SIMETH 30 ML, LIDOCAINE HCL 2... PO (14:13)
--- NOTE | 2023-09-21 15:34 | ECG_ITS ---
Measurements Intervals [place] Rate: 49 P: 42 MN: 147 QRS: 39 QRSD: 90 T: 46 QT: 424 QTc: 385 Interpretive Statements SINUS BRADYCARDIA OTHERWISE NORMAL ECG COMPARED TO ECG 09/21/2023 12:26:46 NO SIGNIFICANT CHANGES Electronically Signed On 09-21-2023 15:44:25 CALENDER MACHINE OPERATOR HELPER by Soto Eagle M.D.
[2023-09-21 16:11] LABS: Troponin I < 0.012 ng/mL (0.000-0.034)
== END 2023-09-21 17:32 | disposition home or self-care (01) ==
PROVIDERS: Emergency Medicine; Physician Assistant; Emergency Provider Preventive Medicine Aerospace Medicine; PCP Emergency Medicine
DX: R00.1 Bradycardia, unspecified (principal); R07.9 Chest pain, unspecified; I10 Essential (primary) hypertension; E78.2 Mixed hyperlipidemia
CPT/HCPCS: 36415; 71046; 80053; 83690; 83735; 84484; 85025; 85610; 85730; 93005; 99284; A9270

== ENCOUNTER 2023-09-29 12:32 | Outpatient (CLI) | payer MEDICARE, SELFPAY ==
[2023-09-29 19:16] LABS: Erythrocyte Sedimentation Rate 6 mm/hr (0-20)
[2023-09-29 19:45] LABS: Influenza A QL RT-PCR Negative (Negative); Influenza B QL RT-PCR Negative (Negative); SARS-CoV-2 RNA PCR Negative (Negative)
[2023-09-29 21:00] LABS: Thyroid Stimulating Hormone Reflex 0.908 uIU/mL (0.465-4.68)
[2023-09-29 21:13] LABS: CRP < 0.5 mg/dL (<1.0)
[2023-10-05 12:05] LABS: Anti Nuclear Antibody Pattern Nuclear, Speckled; Anti Nuclear Antibody Titer 1:40 (Negative)
== END 2023-09-29 12:33 | disposition home or self-care (01) ==
LOC: ANHGOSHLAB 12:34
PROVIDERS: PCP Emergency Medicine; Visit Provider Emergency Medicine
DX: I49.9 Cardiac arrhythmia, unspecified (principal); R00.2 Palpitations; M79.10 Myalgia, unspecified site; Z20.822 Contact with and (suspected) exposure to COVID-19
CPT/HCPCS: 36415; 84443; 85652; 86038; 86039; 86140; 87636

== ENCOUNTER 2023-10-05 15:36 | Outpatient (CLI) | payer MEDICARE, SELFPAY ==
--- NOTE | 2023-10-05 | ECHO_ITS ---
Patient Info Name: Camilo Gupta Age: 73 years : 1950 Gender: Male Ht: 68 in Wt: 165 lbs BSA: 1.90 m2 HR: 55 bpm BP: 173 / 87 mmHg Heart Rhythm: Bradycardia, Sinus Rhythm Technical Quality: Good Exam Date: 10/05/2023 3:04 PM Exam Location: Echo Lab Patient Status: Outpatient Admit Date: 10/05/2023 Staff Ordering Physician: Avi Vela MD Event Producer: Enid Gallardo RDCS Attending Provider: Avi Vela MD Referring Physician: Dane REESE; Exam Type: CA echo doppler color flow Study Info Indications - arrythmia Complete two-dimensional, color flow and Doppler transthoracic echocardiogram is performed. Summary 1. Complete two-dimensional, color flow and Doppler transthoracic echocardiogram is performed. 2. Left ventricular chamber dimension is normal. 3. Left ventricular systolic function is normal, estimated at 65-70%. 4. Right ventricular systolic function is normal. 5. No significant valvular disease. Left Ventricle Left ventricular chamber dimension is normal. Left ventricular systolic function is normal, estimated at 65-70%. There is no increased left ventricular wall thickness. Right Ventricle Right ventricular chamber dimension is normal. Right ventricular systolic function is normal. Left Atria Left atrial chamber dimension is normal. Right Atria Right atrial chamber dimension is normal. Atrial Septum Intact interatrial septum visualized by color flow imaging. Aortic Valve The aortic valve is probable trileaflet. There is no aortic valve stenosis. There is no aortic valve regurgitation. There is mild aortic valve calcification. Pulmonic Valve The pulmonic valve is not well visualized. There is trace pulmonic regurgitation. Mitral Valve There is trace mitral valve regurgitation. Tricuspid Valve There is trace tricuspid valve regurgitation. Pericardium/Pleural The pericardium appears epicardial fat pad. There is no pericardial effusion. Inferior Vena Cava Normal inferior vena cava with >50% collapse upon inspiration consistent with normal right atrial pressure, 3 mmHg. Aorta The aortic root size at the sinus of Valsalva is normal. Left Ventricular Outflow Tract Name Value Normal LVOT 2D LVOT Diameter 2.0 cm LVOT Doppler LVOT Peak Gradient 7 mmHg LVOT Mean Gradient 4 mmHg LVOT VTI 31 cm LVOT VTI/AV VTI Ratio 0.9 LVOT Stroke Volume 95 ml LVOT CO 4.8 l/min LVOT CI 2.5 l/min/m2 Pulmonic Valve Name Value Normal RVOT Doppler RVOT Peak Gradient 3 mmHg PV Doppler PV Peak Gradient 6 mmHg Mitral Valve
== END 2023-10-05 15:37 | disposition home or self-care (01) ==
PROVIDERS: PCP Emergency Medicine; Visit Provider Emergency Medicine
DX: I49.9 Cardiac arrhythmia, unspecified (principal); R00.2 Palpitations
CPT/HCPCS: 93306

== ENCOUNTER 2023-11-29 14:00 | Outpatient (RCR) | payer MEDICARE, SELFPAY | END 2023-12-16 23:59 | disposition home or self-care (01) | LOC: ANHAUDASC 14:00 | PROVIDERS: PCP Emergency Medicine; Visit Provider Emergency Medicine | DX: Z46.1 Encounter for fitting and adjustment of hearing aid (principal) | CPT/HCPCS: 99199; V5261 ==

== ENCOUNTER 2024-02-10 08:02 | Outpatient (CLI) | payer MEDICARE, SELFPAY ==
[2024-02-10 20:23] LABS: Alanine Aminotransferase 25 U/L (6-50); Alkaline Phosphatase 78 U/L (38-126); Anion Gap 9 mmol/L (4-12); Aspartate Amino Transferase 40 U/L (17-59); Bilirubin,Total 1.1 mg/dL (0.2-1.3); Blood Urea Nitrogen 14 mg/dL (9-20); Calcium 9.5 mg/dL (8.4-10.2); Carbon Dioxide 28 mmol/L (22-30); Chloride 102 mmol/L (98-107); Cholesterol 162 mg/dL (0-200); Estimated Glomerular Filt Rate > 60; Glucose 80 mg/dL (65-110); HDL Direct 55 mg/dL; Potassium 3.9 mmol/L (3.4-5.0); Sodium 139 mmol/L (137-145); Triglycerides 102 mg/dL (<150)
[2024-02-10 20:30] LABS: Eosinophils Absolute Auto 0.3 K/mm3 (0-0.3); Eosinophils Percent Auto 7.9 % (0-4.4); Hematocrit 45.5 % (42.0-52.0); Hemoglobin 14.6 g/dL (14.0-18.0); Immature Granulocyte Absolute 0.01 K/mm3 (0.00-0.031); Immature Granulocyte Percent A 0.2 % (0-0.5); Lymphocytes Absolute Auto 1.02 K/mm3 (0.9-3.2); Lymphocytes Percent Auto 25.2 % (18.3-44.2); Mean Corpuscular HGB Conc 32.1 g/dl (32-36); Mean Corpuscular Hemoglobin 29.3 pg (26-34); Mean Corpuscular Volume 91.2 fl (80-100); Mean Platelet Volume 11.7 fl (7.4-10.4); Monocytes Absolute Auto 0.5 K/mm3 (0.1-0.6); Monocytes Percent Auto 12.1 % (2.6-8.5); Neutrophils Absolute Auto 2.2 K/mm3 (1.3-6.7); Neutrophils Percent Auto 53.6 % (45.5-73.1); Platelet Count Result 175 k/mm3 (150-375); Red Blood Count 4.99 M/mm3 (4.6-6.20); Red Cell Distribution Width 13.7 % (11.5-14.5)
[2024-02-10 20:39] LABS: LDL Cholesterol Direct 80 mg/dL
== END 2024-02-10 08:03 | disposition home or self-care (01) ==
PROVIDERS: PCP Emergency Medicine; Visit Provider Emergency Medicine
DX: R00.2 Palpitations (principal); E78.2 Mixed hyperlipidemia
CPT/HCPCS: 36415; 80053; 80061; 85025

== ENCOUNTER 2024-05-03 08:22 | Outpatient (CLI) | payer MEDICARE, SELFPAY ==
--- NOTE | ~2024-05-03 | XR_ITS ---
EXAMINATION: XR thoracic spine 3V DATE: 05/03/2024 08:42 INDICATION: Left upper quadrant abdominal pain. TECHNIQUE: 3 views of the thoracic spine were obtained. COMPARISON: Chest 2 views 09/21/2023 FINDINGS: There is 6 degrees levocurvature of thoracic spine. There are changes of anterior fusion pr ocedure in cervical spine. There is mild chronic anterior wedging of T9 and T12. There is mildly decr eased disc height at multiple levels. There is severely decreased disc height at T9-T10 and moderatel y decreased disc height at T12-L1. There are endplate osteophytes at all levels. IMPRESSION: 1. Moderate thoracic spondylosis. Reviewed, dictated and finalized at location A.
--- NOTE | ~2024-05-03 | CT_ITS ---
EXAMINATION: CT abd pelvis lumbar w con DATE: 05/03/2024 09:21 INDICATION: Left flank pain. TECHNIQUE: Computed tomography (CT) of the abdomen and pelvis and lumbar spine was performed with 100 mL Omnipaque 350 intravenous contrast. Automated exposure control and iterative reconstruction techn ique were employed. The dose-length product was 535.32 mGy-cm. COMPARISON: None FINDINGS: CT ABDOMEN AND PELVIS: The visualized portions of the lung bases demonstrate mild atelectasis. No ple ural effusion. The heart size is normal. There are coronary artery calcifications. No pericardial eff usion. There is mild bilateral gynecomastia. The liver, gallbladder, spleen, pancreas, and adrenal gl ands are normal. There are cysts in the kidneys measuring up to 13 mm on the right. There are no dila sam loops of bowel. The appendix is not visualized. There are no pathologically enlarged lymph nodes. There is no free intraperitoneal fluid. There is a right inguinal hernia containing fat. There are b ilateral total hip arthroplasties. CT LUMBAR SPINE: There is a chronic left L4 pars defect. There is 7 mm anterolisthesis of L4 and L5. There is mild chronic anterior wedging of multiple vertebral bodies. L3 is a limbus vertebra. There a re changes of anterior and posterior fusion procedures at L4-L5 with interbody device and right-sided pedicle screws. There is severely decreased disc height at T11-T12, moderately decreased disc height at T12-L1 and L1-L2, severely decreased disc height at L2-L3, and moderately decreased disc at L3-L4 . There is severely decreased disc height at L5-S1 with interbody fusion. The following disc levels a re specifically discussed: L1-L2: The disc is bulging. There is mild bilateral facet joint osteoarthritis. There is mild bilater al neural foraminal stenosis. There is mild central canal stenosis. L2-L3: The disc is bulging. There is mild right and moderate left facet joint osteoarthritis. There i s moderate bilateral neural foraminal stenosis. There is mild central canal stenosis. L3-L4: The disc is bulging. There is severe bilateral facet joint osteoarthritis. There is moderate b ilateral neural foraminal stenosis. There is mild central canal stenosis. L4-L5: There is moderate left facet joint hypertrophy. There is mild right and moderate left neural f oraminal stenosis. There is mild central canal stenosis. L5-S1: The disc is bulging. There is severe bilateral facet joint osteoarthritis. There is moderate b ilateral neural foraminal stenosis. There is mild central canal stenosis. IMPRESSION: 1. Severe lumbar spondylosis. 2. Anterior and posterior fusion procedures at L4-L5. Reviewed, dictated and finalized at location A.
[2024-05-03 09:11] LABS: Estimated Glomerular Filt Rate > 60
== END 2024-05-03 08:23 | disposition home or self-care (01) ==
PROVIDERS: PCP Family Medicine; Visit Provider Family Medicine
DX: M47.814 Spondylosis without myelopathy or radiculopathy, thoracic region (principal); M47.816 Spondylosis without myelopathy or radiculopathy, lumbar region; M43.26 Fusion of spine, lumbar region; R10.9 Unspecified abdominal pain
CPT/HCPCS: 72072; 72132; 74177; Q9967

== ENCOUNTER 2024-09-04 08:27 | Outpatient (CLI) | payer MEDICARE, SELFPAY ==
--- NOTE | ~2024-09-04 | NM_ITS ---
EXAMINATION: NM theo stress w perfusion DATE: 09/04/2024 10:24 INDICATION: Abnormal electrocardiogram. Cardiac arrhythmia. TECHNIQUE: Rest images were obtained following intravenous administration of 11.7 mCi Tc99m tetrofosm in (Myoview). The patient was infused intravenously with Lexiscan (regadenoson). Then, 34.8 mCi Tc99m tetrofosmin (Myoview) was administered intravenously, and stress images were obtained. Data was porsche nstructed into short axis and horizontal and vertical long axis SPECT images. Gated SPECT images were also obtained. COMPARISON: CT abdomen and pelvis 05/03/2024 FINDINGS: There is no definite reversible or fixed perfusion abnormality to suggest ischemia or infar ction. There is no segmental wall motion abnormality. Left ventricular ejection fraction measures > 70%. IMPRESSION: 1. No definite ischemia or infarct. 2. Normal left ventricular ejection fraction measuring >70%. Reviewed, dictated and finalized at location A. OR MACHINE FEEDER
--- OUTSIDE RECORDS SUMMARY | 2024-09-04 08:37 | XMS_ITS | Clinical Summary ---
Author Organization [facility] [address] Address [address] [place] [address] Care Team Providers Care Graphite Pan Drier Tender Name Role Phone Jesús Stevens MD Primary Care Provider [phone] Allergies Active Allergy Reactions Criticality Noted Date Comments Piroxicam Rash Medium 08/10/2018 Medications atorvastatin (LIPITOR) 10 mg tablet Take 10 mg by mouth daily. 3 8 Active tamsulosin (FLOMAX) 0.4 mg extended release capsule Take 0.4 mg by mouth daily. 3 8 Active losartan (COZAAR) 25 mg tablet Take 25 mg by mouth daily. 2 8 Active diclofenac submicronized 35 mg capsule Take 35 mg by mouth daily. Active magnesium oxide (MAG-OX) 400 mg (241.3 mg elemental magnesium) tabletIndications: hypomagnesemia Take 400 mg by mouth daily. Active aspirin 81 mg tablet Take 81 mg by mouth daily. Active VITAMIN B COMPLEX ORAL Take by mouth daily. Active esomeprazole DR (NexIUM) 20 mg capsule Take 20 mg by mouth daily before breakfast. Active Active Problems Problem Noted Date Diagnosed Date Abnormal cardiovascular stress test 08/12/2018 Surgical History Surgery Date Site/Laterality Comments APPENDECTOMY LUMBAR DISCECTOMY PYELOPLASTY Right CERVICAL FUSION ROTATOR CUFF REPAIR Left HIP ARTHROPLASTY Left Medical History Medical History Date Comments Hypertension GERD (gastroesophageal reflux disease) Cataracts, bilateral Family History Medical History Relation Name Comments Heart disease Brother Hyperlipidemia Brother Hypertension Brother Hypertension Father Hypertension Mother Pulmonary fibrosis Mother Hyperlipidemia Sister Hypertension Sister Relation Name Status Comments Brother Alive Father (Age 73) Mother (Age 71) Sister Alive Social History Tobacco Use Types Packs/Day Years Used Date Smoking Tobacco: Former Smokeless Tobacco: Never Alcohol Use Standard Drinks/Week Comments Yes 0 (1 standard drink = 0.6 oz pur e alcohol) Personal Safety Answer Date Recorded Getting School Help Needed Not on file 10/06 Sex and Gender Information Value Date Recorded Sex Assigned at Not on file Legal Sex Male 10:34 AM BUSINESS OPERATIONS SPECIALIST Gender Identity Not on file Sexual Orientation Not on file Obstetrics History Last Filed Vital Signs Vital Sign Reading Time Taken Comments Blood Pressure 138/76 08/12/2018 1:10 PM BUSINESS OPERATIONS SPECIALIST Pulse 66 08/12/2018 1:10 PM BUSINESS OPERATIONS SPECIALIST Temperature - - Respiratory Rate - - Oxygen Saturation 98% 08/12/2018 1:10 PM BUSINESS OPERATIONS SPECIALIST Inhaled Oxygen Concentration - - Weight 76.7 kg (169 lb) 08/12/2018 1:10 PM BUSINESS OPERATIONS SPECIALIST Height 172.7 cm (5' 8 ) 08/12/2018 1:10 PM BUSINESS OPERATIONS SPECIALIST Body Mass Index 25.7 08/12/2018 1:10 PM BUSINESS OPERATIONS SPECIALIST Plan of Treatment Not on file Insurance [facility] Care Teams Graphite Pan Drier Tender Relationship Specialty Start Date End Date Jesús Stevens MD [address] [place] [address] PCP - General Family Medicine 08/05/18
--- OUTSIDE RECORDS SUMMARY | 2024-09-04 08:37 | XMS_ITS | Clinical Summary ---
Author Organization [facility] Address [address] [place] [address] Phone Care Team Providers Care Studio Data Analyst Name Role Phone Francis Stevens MD Primary Care Provider [phone] Allergies Active Allergy Reactions Criticality Noted Date Comments Piroxicam Rash 09/28/2012 Medications olmesartan (BENICAR) 20 mg Oral tablet Take 20 mg by mouth daily. Active ezetimibe (ZETIA) 10 mg Oral tablet Take 10 mg by mouth daily. Active multivitamin (DAILY-ANUJ) Oral tablet Take 1 Tab by mouth daily. Active omega-3 fatty acids-fish oil 300-1,000 mg Oral Cap Take by mouth daily. Active Cholecalciferol, Vitamin D3, 3,000 unit Oral Tab Take by mouth. Active naproxen sodium (ALEVE) 220 mg Oral Tab Take 220 mg by mouth every 4 hours as needed. Active oxyCODONE-acetam inophen (PERCOCET) 5-325 mg Oral tablet Take 1-2 Tabs by mouth every 4 hours as needed for Pain, Moderate. 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 Social History Tobacco Use Types Packs/Day Years Used Date Smoking Tobacco: Never Alcohol Use Standard Drinks/Week Comments Yes 0 (1 standard drink = 0.6 oz pur e alcohol) social Sex and Gender Information Value Date Recorded Sex Assigned at Not on file Legal Sex Male 4:03 AM BLOCK CUBER Gender Identity Not on file Sexual Orientation Not on file Last Filed Vital Signs Vital Sign Reading Time Taken Comments Blood Pressure 129/58 10/04/2012 5:13 AM CDT Pulse 77 10/04/2012 5:13 AM CDT Temperature 36.8 C (98.2 F) 10/04/2012 5:13 AM CDT Respiratory Rate 16 10/04/2012 5:13 AM CDT Oxygen Saturation 98% 10/04/2012 5:13 AM CDT Inhaled Oxygen Concentration - - Weight 77.3 kg (170 lb 6.4 oz) 10/03/2012 5:39 A M CDT Height 175.3 cm (5' 9 ) 09/28/2012 9:30 AM BLOCK CUBER Body Mass Index 25.16 09/28/2012 9:30 AM BLOCK CUBER Plan of Treatment Health Maintenance Due Date Last Done Comments DTAP/TDAP/TD VACCINES (1 - Tdap) 1968 COLORECTAL SCREENING 1994 Colorectal Cancer Screening 1994 FIT-DNA Q 3 years 1994 FIT/FOBT Q 1 year 1994 Flex Sig/CT Colonography Q 5 years 1994 PNEUMOCOCCAL VACCINE 65+ YEARS (1 of 1 - PCV) 07/24/19 99 ZOSTER VACCINE (1 of 2) 1999 INFLUENZA VACCINE (#1) 2024 RSV VACCINE (60+ or ) (1 - 1-dose 75+ series) 2024 Medical Devices Implanted Type Area Lube Technician Device Identifier Shelf Expiration Date Model / Serial / Lot Allgrft Spacer Acf 10mm [id number] - [id number] Implanted:Qt y: 1 on 10/03/2012 at [facility] N/A: Spine Cervical Anterior MUSCULOSKELETAL TRANSPLANT FOU 08/27/2016 [id number] / [id number] / Allgrft Spacer Acf 8mm [id number] - [id number] Implanted:Qt y: 1 on 10/03/2012 at [facility] N/A: Spine Cervical Anterior MUSCULOSKELETAL TRANSPLANT FOU 01/24/2017 [id number] / [id number] / 0 Allgrft Spacer Acf 8mm 854462 - [id number] Implanted:Qt y: 1 on 10/03/2012 by Rafita Thomas MD at [facility] N/A: Spine Cervical Anterior MUSCULOSKELETAL TRANSPLANT FOU 01/24/2017 [id number] / [id number] / Allgrft Spacer Acf 9mm 731939 - [id number] Implanted:Qt y: 1 on 10/03/2012 at [facility] Bone N/A: Spine Cervical Anterior MUSCULOSKELETAL TRANSPLANT FOU 03/20/2017 [id number] / [id number] / Screw [place] Vari Sd 14mm [id number] - [id number] Implanted:Qt y: 8 on 10/03/2012 by Rafita Thomas MD at [facility] Screw N/A: Spine Cervical Anterior [employer] 4 / / Description:Log September 30 3 Sealant Floseal W/ Adptr 10ml [id number] - [id number] Implanted:Qt y: 1 on 10/03/2012 by Rafita Thomas MD at [facility] Sealant N/A: Neck SAM- BIOSCIENCE 11/23/2013 [id number] 2 / / [id number] Sealant Floseal W/ Apdtr 5ml [id number] - [id number] Implanted:Qt y: 1 on 10/03/2012 by Rafita Thomas MD at [facility] Sealant N/A: Spine Cervical Anterior SAM- [employer]ENCE 09/23/2013 [id number] / / [id number] 72mm Cervical [place] Plate Implanted:Qt y: 1 on 10/03/2012 by Rafita Thomas MD at [facility] N/A: Spine Cervical Anterior [employer]- [employer] 1867-10-31 2 / / Description:Log September 15mm [place] Screws Implanted:Qt y: 2 on 10/03/2012 by Rafita Thomas MD at [facility] N/A: Spine Cervical Anterior [employer] 5 / / Description:Log September Advance Directives For more information, please contact: [phone] * Full Code (Latest Code Status on File) Date Activated Date Inactivated Comments 10/03/2012 11:38 AM 10/04/2012 12:31 PM * Full Code Date Activated Date Inactivated Comments 10/03/2012 6:34 AM 10/03/2012 11:38 AM * Full Code Date Activated Date Inactivated Comments 10/03/2012 5:40 AM 10/03/2012 6:34 AM Care Teams Studio Data Analyst Relationship Specialty Start Date End Date Francis Stevens MD [address] [place] [address] PCP - General Family Practice 09/23/12
--- OUTSIDE RECORDS SUMMARY | 2024-09-04 08:37 | XMS_ITS | Referral Summary ---
Author Organization [facility] [address] Address [address] [place] [address] Care Team Providers Care Pallet Stone Positioner Name Role Phone Jesús Stevens MD Primary Care Provider [phone] Allergies Active Allergy Reactions Criticality Noted Date [...] Diagnosed Date Abnormal cardiovascular stress test 08/12/2018 Social History Tobacco Use Types Packs/Day Years Used Date Smoking Tobacco: Former Smokeless Tobacco: Never Alcohol Use Standard Drinks/Week Comments Yes 0 (1 standard drink = 0.6 oz pur e alcohol) Personal Safety Answer Date Recorded Getting School Help Needed Not on file 10/06 Sex and Gender Information Value Date Recorded Sex Assigned at Not on file Legal Sex Male 10:34 AM ROTOR PLATE WASHER Gender Identity Not on file Sexual Orientation Not on file Last Filed Vital Signs Vital Sign Reading Time Taken Comments Blood Pressure 138/76 08/12/2018 1:10 PM ROTOR PLATE WASHER Pulse 66 08/12/2018 1:10 PM ROTOR PLATE WASHER Temperature - - Respiratory Rate - - Oxygen Saturation 98% 08/12/2018 1:10 PM ROTOR PLATE WASHER Inhaled Oxygen Concentration - - Weight 76.7 kg (169 lb) 08/12/2018 1:10 PM ROTOR PLATE WASHER Height 172.7 cm (5' 8 ) 08/12/2018 1:10 PM ROTOR PLATE WASHER Body Mass Index 25.7 08/12/2018 1:10 PM ROTOR PLATE WASHER Plan of Treatment Not on file Insurance MEDICARE [facility] MEDICARE [facility] Care Teams Pallet Stone Positioner Relationship Specialty Start Date End Date Jesús Stevens MD [address] [place] [address] PCP - General Family Medicine 08/05/18
--- OUTSIDE RECORDS SUMMARY | 2024-09-04 08:37 | XMS_ITS | Encounter Summary ---
Author Organization [facility] Address [address] [place] [address] Care Team Providers Care Distribution Operations Supervisor Name Role Phone Francis Stevens MD Primary Care Provider [phone] Encounter Details Date Type Department Care Team (Latest Contact Info) Description 07/13/2007 Outpatient Historical [facility] Rafita Thomas MD NO ADDRESS ON FILE Spinal Stenosis, Unspecified Region Other than Cervical Social History Tobacco Use Types Packs/Day Years Used Date Smoking Tobacco: Never Assessed Sex and Gender Information Value Date Recorded Sex Assigned at Not on file Legal Sex Male 4:03 AM PATTERNMAKER HELPER Gender Identity Not on file Sexual Orientation Not on file documented as of this encounter Plan of Treatment Not on file documented as of this encounter Procedures Procedure Name Priority Date/Time Associated Diagnosis Comments HEMOGLOBIN AND HEMATOCRIT Routine 07/28/2007 5:20 AM PATTERNMAKER HELPER HEMOGLOBIN AND HEMATOCRIT Routine 07/27/2007 6:25 PM PATTERNMAKER HELPER documented in this encounter Results * (ABNORMAL) HEMOGLOBIN AND HEMATOCRIT (07/28/2007 5:20 AM PATTERNMAKER HELPER) HEMOGLOBIN 12.4(L) 13.6 - 16.5 g/dL INTERFACE SYSTEM HEMATOCRIT 37.1(L) 40.0 - 48.0 % INTERFACE SYSTEM 07/28/2007 5:20 AM PATTERNMAKER HELPER us Rafita Thomas MD HEMATOLOGY ORDERABLES Edited INTERFACE SYSTEM Refer to clinic/hospital department * (ABNORMAL) HEMOGLOBIN AND HEMATOCRIT (07/27/2007 6:25 PM PATTERNMAKER HELPER) HEMOGLOBIN 13.5(L) 13.6 - 16.5 g/dL INTERFACE SYSTEM HEMATOCRIT 40.2 40.0 - 48.0 % INTERFACE SYSTEM 07/27/2007 6:25 PM PATTERNMAKER HELPER us Rafita Thomas MD HEMATOLOGY ORDERABLES Edited INTERFACE SYSTEM Refer to clinic/hospital department documented in this encounter Visit Diagnoses Diagnosis Spinal stenosis, unspecified region other than cervical documented in this encounter Care Teams Distribution Operations Supervisor Relationship Specialty Start Date End Date Francis Stevens MD [address] [place] [address] PCP - General Family Practice 09/23/12 documented as of this encounter
--- OUTSIDE RECORDS SUMMARY | 2024-09-04 08:37 | XMS_ITS | Data Portability ---
Author Organization [place] [facility] [employer], Main Office Address [address] [place] [address] Care Team Providers Care Chemical Laboratory Scientist Name Role Phone STACEY RANGEL Primary Care Provider STACEY RANGEL Referring Provider [phone] Assessment Encounter Date Assessment Date Assessment LastModified by Organization Details LastModified Time 12/07/2022 12/07/2022 patient returns. He is now 2 weeks out after right total hip arthroplasty. He completed a 10 day course Celebrex. He finished the antibiotics. He is still taking the Eliquis. He is not taking any narcotics even in the hospital. He has been taking about half the recommended amount of Tylenol. He is walking well with a cane and 3 in the middle of the day when he is feeling the best he feels he hardly needs a cane. He has a little bit of difficulty because of the chronic weakness in his left leg. On exam his wound is well healed he has no swelling in his foot ankle or calf. He asked about walking in his pool which is up and running and I think that would be just fine. He is going to keep a folded 4 x 4 on the incision for another week or so to minimize rubbing. I will see him back in 2 weeks to assess his progress with x-rays at that time. Not available 12/07/2022 15:45:23 12/23/2022 12/23/2022 Dr. Gupta returns. He is now 4 weeks after right total hip arthroplasty. Overall he is doing well. He feels that his stiffness is gradually improving. 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 He continues to use a cane in his left hand. His incision looks normal except for the very distal in his vision where he had a 3 mm area of erythema which looked like it had a little blister on it I recommended unroofing this there was a drop of fluid that I suspect represented resorbing Vicryl suture. The lower band of his underwear rubs on this exact spot will keep a Band-Aid this for next week till it heals over completely. He has no swelling leg. He has about 5 more days of Eliquis remain. X-rays of right hip today demonstrate no heterotopic bone formation and no radiographic complication. Leg lengths are equal. We talked about the option of some physical therapy which might help improve his range of motion more quickly. I cautioned him to avoid high repetition hip flexion exercises which can cause iliopsoas tendinitis. I have shown him abductor strengthening exercises and will work on active assisted range of motion in therapy. Also he has an in [employer] exercise and this quite a bit Before his surgery he took naproxen once in a while and after he is off the Eliquis he could resume that on as needed basis. I will see him back in 1 month to assess his progress. Not available 12/23/2022 12:07:18 01/20/2023 01/20/2023 her patient returns. He is now 8 weeks after right total hip arthroplasty. He has improved his activity level quite a bit. He has been going to physical therapy and he feels this has improved his flexibility. He still has a lot of stiffness problems from his back and his left leg is neurologically weaker which limits him a little bit. Five days ago he had an episode where he had dropped something and dropped to his knee and felt a pop in the anterolateral aspect of his right hip. He felt a pain that seem to travel along the course of the sartorius from the anterior superior iliac spine across the front of the thigh the medial thigh. The day before he had taken a 2 mi fast pace walk and did notice some mild soreness over the anterolateral lateral hip area. After the pop feeling and pain he started taking Naprosyn 220 mg twice daily and his soreness improved quite a bit. He avoids larger doses of Naprosyn which bother his stomach. He is able climb stairs now normally but when he goes down stairs he still tends to lead with the right. He has no anterior groin pain. On exam today is 5/5 abduction strength. He has moderate tenderness over the posterior aspect of the greater trochanter. He has mild tenderness at the IT band lateral to the knee. He had flexion 120 internal rotation 10 causing mild anterolateral pain external rotation 30. Stinchfield maneuver caused pulling discomfort along the course the rectus femoris the central quad with good strength. We did obtain new x-rays the right hip today which showed no radiographic complication. No evidence of component loosening and no heterotopic bone. Impression: I suspect that he has had a pop of the iliotibial band snapping over the greater trochanter and that was his feeling as well. I have prescribed a Medrol Dosepak for him. In 2 weeks she is going to [facility] on a trip. Over these next 2 weeks he is going to cut back on his activities a little bit make sure that everything twice down around the right hip. If it does not I will see him back otherwise I can see him back for his 1 year follow-up. Not available 01/28/2023 13:57:41 Plan of Treatment Reminders Order Date Submit Date Provider Last Modified By Organization Details Last Modified Time Details Appointments None recorded. Lab None recorded. Referral physical therapist referral 2022 023 [email or web address], [address] [facility], [place], [address], 3 10:47:40 Procedures None recorded. Surgeries None recorded. Imaging XR, hip + pelvis, unilateral 2022 023 [facility], [address], [place], [address], 3 12:17:39 XR, hip + pelvis, unilateral 2022 023 [email or web address] [facility], [address], [place], [address], 3 17:14:22 Medication Orders Medrol (Ivan) 4 mg tablets in a dose pack 2022 023 [id number], [address], [place], [phone], 13:10:33 Patient TargetsNo targets recorded. Patient InstructionsNo instructions recorded. Reason for Referral Physical Therapist Referral for History of total replacement of right hip joint Referring Physician: Cody Eduardo, Orthopedic Surgery, Encounter Date: 12/23/2022 Results Created Date Observation Date Name Description Value Unit Range Abnormal Flag Note LastModifiedBy Organization Detail LastModifiedTime 09/04/1909/04/2022 XR, hip + pelvi s, unila teral No observ ation record ed. [id number] [facility] [address], [place], [address], 09/23/2022 14:13:15 11/19/19 23 09/24/2022 elect benny diogr am No observ ation record ed. [email or web address] Not Available 2022 10:07:59 11/24/19 23 11/23/2022 XR, hip + pelvi s, unila teral No observ ation record ed. [address], [place], [address], 11/24/2022 11:27:06 11/24/19 23 11/23/2022 XR, hip + pelvi s, unila teral No observ ation record ed. [address], [place], [address], 11/24/2022 11:27:27 12/24/19 XR, hip + pelvi s, unila teral No observ ation record ed. [facility] [address], [place], [address], 12/23/2022 12:08:02 01/21/20 23 XR, hip + pelvi s, unila teral No observ ation record ed. [email or web address] [facility] [address], [place], [address], 01/20/2023 10:16:34 Result Notes None recorded. 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 Procedures Surgical History None recorded. Imaging Results Imaging Date Name Status LastModified by Organization Details LastModified Time 09/04/2022 XR, hip + pelvis, unilateral completed [id number] [facility] [address], [place], [address], 09/23/2022 14:13:15 09/24/2022 electrocardiogram completed [email or web address] Informa tion not available 11/18/2022 10:07:59 11/23/2022 XR, hip + pelvis, unilateral completed [place] [id number] [facility] [address], [address], 11/24/2022 11:27:06 11/23/2022 XR, hip + pelvis, unilateral completed [email or web address] [place] [id number] [facility] [address], [place], [address], 11/24/2022 11:27:27 12/23/2022 XR, hip + pelvis, unilateral completed [facility] [address], [place], [address], 12/23/2022 12:08:02 01/20/2023 XR, hip + pelvis, unilateral completed [email or web address] [facility] [place] [address], [place], [address], 01/20/2023 10:16:34 Procedure Notes None recorded. Medical Equipment None Reported. Allergies Allergen ID Allergen Name Allergen Category Reaction Reaction Severity Criticality Documentation Date Start Date Code Code System Note Provider Name and Address Organization Details Recorded Time 02715 piroxicam medicatio n Not available Not available Not available 09/23/2022 8356 RxNorm Not Available [facility] 3 14:13:13 61465 Feldene medicatio n rash moderate Not available 09/23/2022 79067 8 RxNorm Not Available [facility] 3 14:13:13 Medications Name Sig Start Date Stop Date Status Note LastModified by Organization Details LastModified Time senna s 8.6-50mg tablets TAKE 2 TABLETS BY MOUTH TWICE DAILY 12/23 completed Not Available Not Available Not Available celecoxib 200 mg capsule TAKE 1 CAPSULE BY MOUTH EVERY DAY 12/07 completed Not Available Not Available Not Available amoxicillin 500 mg capsule TK FOUR CS PO 1 HOUR B DAPP active Not Available Not Available No t Available atorvastati n 10 mg tablet TAKE 1 TABLET BY MOUTH DAILY active Not Available Not Available No t Available Aspir-Low 81 mg tablet,maximus yed release Take 1 tablet every day by oral route. 09/04 completed Not Available Not Available Not Available famotidine 20 mg tablet TAKE 1 TABLET BY MOUTH DAILY active Not Available Not Available No t Available tamsulosin 0.4 mg capsule TAKE 1 CAPSULE BY MOUTH DAILY active Not Available Not Available No t Available cephalexin 500 mg capsule TAKE 1 CAPSULE BY MOUTH EVERY 6 HOURS 12/23 completed Not Available Not Available Not Available losartan 25 mg tablet TAKE 1 TABLET BY MOUTH DAILY active Not Available Not Available No t Available methylpredn isolone 4 mg tablets in a dose pack FOLLOW PACKAGE DIRECTION S active Not Available Not Available No t Available timolol maleate 0.5 % eye drops INSTILL 1 DROP INTO THE RIGHT EYE TWICE DAILY active Not Available Not Available No t Available tobramycin 0.3 %-dexametha sone 0.1 % eye drops,suspe nsion 04/25 completed Not Available Not Available Not Available Naprosyn 12/07 completed Not Available Not Available Not Available Prepopik 10 mg-3.5 gram-12 gram oral powder packet USE DIRECTED 04/25 completed Not Available Not Available Not Available Eliquis 2.5 mg tablet TAKE 1 TABLET BY MOUTH EVERY 12 HOURS active Not Available Not Available No t Available BinaxNOW COVID-19 Ag Self Test kit TEST DIRECTED TODAY 12/23 completed Not Available Not Available Not Available Paxlovid 300 mg (150 mg x 2)-100 mg tablets in a dose pack TK 2 NIRMATREL VIR TS AND 1 RITONAVIR T TOGETHER PO BID FOR 5 DAYS TWICE DAILY X 5 DAYS 12/23 completed Not Available Not Available Not Available Vitals Date Recorded Body mass index (BMI) Body height Body weight Provider Name and Address Organization Details Last Updated DateTime 09/23/2022 26.6 kg/m2 170.18 cm 39044.7 g Not Available [facility] 09/23/2022 14:10:52 Date Recorded Body height Provider Name an d Address Organization Details Last Updated DateTime 12/07/2022 170.18 cm TAMIR Schwartz [facility] 12/07/2022 15:17:44 Date Recorded Body height Provider Name an d Address Organization Details Last Updated DateTime 12/23/2022 170.18 cm Trish Jarviss [facility] 12/23/2022 10:03:14 Date Recorded Body height Provider Name an d Address Organization Details Last Updated DateTime 01/20/2023 170.18 cm Tessa Martinez Alana [facility] 01/20/2023 09:58:23 Social History Question Answer Notes LastModified by Organizat ion Details LastModified Time Tobacco Smoking Status Never Smoker Lydia angel ID [employer] [facility] 01/20/2023 09:55:25 What Is Your Level Of Alcohol Consumption? Occasional [id number] Information not available 09/23/2022 Sex: Unknown Functional Status None recorded. Mental Status None recorded. Family History Relationship Description Onset Age of this Age Resolved Age Notes LastModified by Organization Details LastModified Time Brother Heart disease [id number] Not available 09/23/2022 14:10:24 Maternal Grandmother Family history of stroke [email or web address] Not available 01/20 09:55:25 Father Hypertensive disorder [id number] Not available 09/23/2022 14:10:24 Father Blood coagulation disorder [email or web address] Not available 01/20 09:55:25 Mother Hypertensive disorder [id number] Not available 09/23/2022 14:10:24 Mother Chronic obstructive pulmonary disease [email or web address] Not available 01/20 09:55:25 Sister Chronic obstructive pulmonary disease [email or web address] Not available 01/20 09:55:25 Notes:FATHER-VENOUS THROMBOS IS MOTHER- PULMONARY FIBROSIS Medical History Condition Response CANCER: SPECIFY Y Past Encounters Encounter ID Performer Location Encounter Start Date Encounter Closed Date Diagnosis/Indication Diagnosis SNOMED-CT Code Diagnosis ICD10 Code Diagnosis Note [id number] [facility] [address] [place] [address] 09/04/2022 00:00:00 09/06/2022 15:43:32 [id number] Cody Eduardo MD [facility] [address] [place] [address] 12/07/2022 15:10:54 12/07/2022 15:48:14 History of total replacement of right hip joint 0586114462 14491 Z96.641 [id number] Cody Eduardo MD [facility] [address] [place] [address] 12/23/2022 09:59:58 12/23/2022 12:16:13 History of total replacement of right hip joint 3122565081 36665 Z96.641 [id number] Cody Eduardo MD [facility] [address] [place] [address] 01/20/2023 09:54:15 01/28/2023 17:14:22 History of total replacement of right hip joint 7113232534 28910 Z96.641 Health Concerns Section Related Observation LastModified by Organization Detai ls LastModified Time None Recorded Concern Status LastModified by Organization Details LastModified Time None Recorded Advance Directives Directive None Recorded Payers Encounter Date Sequence Insurance Name Policy Number Policy Maloney Covered Member ID Maloney Member ID Guarantor Name 12/07/2022 1 [place] Camilo Gupta [id number] Camilo Gupta M.D. 12/07/2022 2 [place] [id number] Camilo Gupta [id number] Camilo Gupta M.D. 12/23/2022 1 [place] Cam[place] Gupta [id number] Camilo Gupta M.D. 12/23/2022 2 [place] [id number] Camilo Gupta [id number] Camilo Gupta M.D. 01/20/2023 1 [place] Cam[place] Gupta [id number] Camilo Gupta M.D. 01/20/2023 2 [place] [id number] Camilo Gupta [id number] Camilo Gupta M.D.
--- NOTE | 2024-09-04 09:19 | EST_ITS ---
Patient Info Name: Camilo Gupta Age: 74 years : 1950 Gender: Male Ht: 68 in Wt: 162 lbs BSA: 1.89 m2 HR: 53 bpm BP: 134 / 79 mmHg Exam Date: 09/04/2024 9:32 AM Exam Location: [facility] Lab Patient Status: Outpatient Admit Date: 09/04/2024 Staff Ordering Physician: Soto Morales MD Attending Provider: Soto Morales MD Exercise Technologist: Teresa GARVEY UTILIZATION REVIEW COORDINATOR Nurse: Erna Aguila APN Exam Type: CA stress theo w NM Study Info Indications I25.10 - Atherosclerotic heart disease of [place] coronary artery without angina pectoris A regadenoson stress test was performed. Summary 1. No abnormal ST-T wave changes with lexiscan. 2. Please correlate with nuclear medicine images, reported separately. Protocol: Lexiscan Stress ECG Details Stage: REST Duration (min): 0 min : 54 sec HR (bpm): 53 SBP (mmHg): --- DBP (mmHg): --- Stage: REST Duration (min): 7 min : 14 sec HR (bpm): 59 SBP (mmHg): 134 DBP (mmHg): 79 Stage: STAGE 1 Duration (min): 1 min : 0 sec HR (bpm): 69 SBP (mmHg): 134 DBP (mmHg): 79 Stage: RECOVERY Duration (min): 1 min : 0 sec HR (bpm): 77 SBP (mmHg): 134 DBP (mmHg): 79 Stage: RECOVERY Duration (min): 2 min : 0 sec HR (bpm): 76 SBP (mmHg): 175 DBP (mmHg): 93 Stage: RECOVERY Duration (min): 3 min : 0 sec HR (bpm): 66 SBP (mmHg): 146 DBP (mmHg): 84 Stage: RECOVERY Duration (min): 4 min : 0 sec HR (bpm): 68 SBP (mmHg): 146 DBP (mmHg): 84 Stage: RECOVERY Duration (min): 4 min : 0 sec HR (bpm): 68 SBP (mmHg): 146 DBP (mmHg): 84 Rest HR: 59 bpm Peak HR: 78 bpm Rest Sys BP: 134 mmHg Peak Sys BP: 175 mmHg Max Pred HR: 145 bpm % Max Pred HR: 54 % Target HR: 123 bpm Max RPP: 13,650 bpm*mmHg Total Time: 1 min : 0 sec Rest Roa BP: 79 mmHg Peak Roa BP: 93 mmHg Total Dose: 0.4 mg Resting ECG Sinus bradycardia with ST depressions and leads II, III, aVF, and V6. Stress ECG Sinus rhythm with no ST-T wave changes other than the noted baseline abnormalities. Arrhythmias None. Report Signatures
== END 2024-09-04 08:28 | disposition home or self-care (01) ==
LOC: ANHCARD 08:29
PROVIDERS: PCP Family Medicine; Visit Provider Family Medicine
DX: I49.9 Cardiac arrhythmia, unspecified (principal); I25.10 Atherosclerotic heart disease of native coronary artery without angina pectoris
CPT/HCPCS: 78452; 93017; A9502; J2785

== ENCOUNTER 2024-09-15 14:44 | Outpatient (CLI) | payer MEDICARE, SELFPAY ==
--- NOTE | ~2024-09-15 | MR_ITS ---
EXAMINATION: MR cervical spine wo con DATE: 09/15/2024 15:30 INDICATION: Spondylosis without myelopathy or radiculopathy. TECHNIQUE: Magnetic resonance imaging (MRI) of the cervical spine was performed without intravenous c ontrast. COMPARISON: Cervical spine MRI 09/01/2023 FINDINGS: There is 3 degrees levocurvature of upper thoracic spine. Vertebral body heights are normal . There are changes of anterior fusion procedure from C3 to C7 with anterior plate and screws. There is healed interbody bone graft from C3 to C6. There is increased T2-weighted signal intensity in the spinal cord from C3-C4 through C6-C7, consistent with myelomalacia. The following disc levels are spe cifically discussed: C2-C3: The disc does not extend beyond the endplate margin. There is moderate right and severe left u ncovertebral joint osteoarthritis. There is moderate right and severe left facet joint osteoarthritis . There is mild bilateral neural foraminal stenosis. There is mild central canal stenosis. C3-C4: There is moderate right and mild left uncovertebral joint hypertrophy. There is no facet joint osteoarthritis. There is mild bilateral neural foraminal stenosis. There is no central canal stenosi s. C4-C5: There is moderate bilateral uncovertebral joint hypertrophy. There is mild bilateral facet bob nt osteoarthritis. There is mild bilateral neural foraminal stenosis. There is no central canal steno sis. C5-C6: There is severe bilateral uncovertebral joint hypertrophy. There is mild bilateral facet joint osteoarthritis. There is mild bilateral neural foraminal stenosis. There is no central canal stenosi s. C6-C7: There is severe bilateral uncovertebral joint hypertrophy. There is moderate bilateral facet j oint osteoarthritis. There is moderate bilateral neural foraminal stenosis. There is mild central can al stenosis. C7-T1: There is a right foraminal protrusion. There is no uncovertebral joint osteoarthritis. There i s severe bilateral facet joint osteoarthritis. There is mild right and moderate left neural foraminal stenosis. There is no central canal stenosis. IMPRESSION: 1. Moderate cervical spondylosis, stable from 09/01/23. 2. Anterior fusion procedure from C3 to C7. 3. Myelomalacia from C3-C4 to C6-C7. Reviewed, dictated and finalized at location A. WINDER
== END 2024-09-15 14:45 | disposition home or self-care (01) ==
LOC: GOSHIMG 14:45
PROVIDERS: PCP Neurological Surgery; Visit Provider Family Medicine
DX: M47.812 Spondylosis without myelopathy or radiculopathy, cervical region (principal); R53.83 Other fatigue; Z98.1 Arthrodesis status; G95.89 Other specified diseases of spinal cord
CPT/HCPCS: 72141

== ENCOUNTER 2025-04-23 12:52 | Outpatient (CLI) | payer MEDICARE, SELFPAY ==
--- OUTSIDE RECORDS SUMMARY | 2025-04-23 12:58 | XMS_ITS | Clinical Summary ---
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 Gender Identity Not on file Sexual Orientation [...] A M CDT Height 175.3 cm (5' 9) 09/28/2012 9:30 AM RAIL CAR PAINTER/SANDBLASTER Body Mass Index 25.16 09/28/2012 9:30 AM RAIL CAR PAINTER/SANDBLASTER Plan of Treatment Health Maintenance Due Date Last Done Comments DTAP/TDAP/TD VACCINES (1 - Tdap) 1968 COLORECTAL SCREENING 1994 Colorectal Cancer Screening 1994 FIT-DNA Q 3 years 1994 FIT/FOBT Q 1 year 1994 Flex Sig/CT Colonography Q 5 years 1994 PNEUMOCOCCAL VACCINE 50+ YEARS (1 of 1 - PCV) 07/24/19 99 ZOSTER VACCINE (1 of 2) 1999 RSV VACCINE (60+ or ) (1 - 1-dose 75+ series) 2024 INFLUENZA VACCINE (#1) 2025 Medical Devices Implanted Type Area It Security Project Manager Device Identifier Shelf Expiration Date Model / Serial / Lot Allgrft Spacer Acf 10mm 021244 - [id number] Implanted:Qt y: 1 on 10/03/2012 at [facility] N/A: Spine Cervical Anterior MUSCULOSKELETAL TRANSPLANT FOU 08/27/2016 [id number] / [id number] / Allgrft Spacer Acf 8mm [id number] - [id number] Implanted:Qt y: 1 on 10/03/2012 at [facility] N/A: Spine Cervical Anterior MUSCULOSKELETAL TRANSPLANT FOU 01/24/2017 [id number] / [id number] / 0 Allgrft Spacer Acf 8mm 381817 - [id number] Implanted:Qt y: 1 on 10/03/2012 by Rafita Thomas MD at [facility] N/A: Spine Cervical Anterior MUSCULOSKELETAL TRANSPLANT FOU 01/24/2017 241011 / [id number] / Allgrft Spacer Acf 9mm 971947 - [id number] Implanted:Qt y: 1 on 10/03/2012 at [facility] Bone N/A: Spine Cervical Anterior MUSCULOSKELETAL TRANSPLANT FOU 03/20/2017 [id number] / [id number] / Screw [place] Vari Sd 14mm 1867-50-014 - [id number] Implanted:Qt y: 8 on 10/03/2012 by Rafita Thomas MD at [facility] Screw N/A: Spine Cervical Anterior J[employer]J- [employer] 4 / / Description:Log September 30 3 Sealant Floseal W/ Adptr 10ml [id number] - [id number] Implanted:Qt y: 1 on 10/03/2012 by Rafita Thomas MD at [facility] Sealant N/A: Neck SAM- BIOSCIENCE 11/23/2013 [id number] 2 / / [id number] Sealant Floseal W/ Apdtr 5ml [id number] - [id number] Implanted:Qt y: 1 on 10/03/2012 by Rafita Thomas MD at [facility] Sealant N/A: Spine Cervical Anterior SAM- BIOSCIENCE 09/23/2013 [id number] / / [id number] 72mm Cervical [place] Plate Implanted:Qt y: 1 on 10/03/2012 by Rafita Thomas MD at [facility] N/A: Spine Cervical Anterior J[employer]J- [employer] 1867-10-31 2 / / Description:Log September 15mm [place] Screws Implanted:Qt y: 2 on 10/03/2012 by Rafita Thomas MD at [facility] N/A: Spine Cervical Anterior J&J- [employer] 5 / / Description:Log September Advance Directives For more information, please contact: [phone] * Full Code (Latest Code Status on File) Date Activated Date Inactivated Comments 10/03/2012 11:38 AM 10/04/2012 12:31 PM * Full Code Date Activated Date Inactivated Comments 10/03/2012 6:34 AM 10/03/2012 11:38 AM * Full Code Date Activated Date Inactivated Comments 10/03/2012 5:40 AM 10/03/2012 6:34 AM Care Teams Senior Wind Energy Consultant Relationship Specialty Start Date End Date Francis Stevens MD [address] [place] [address] PCP - General Family Practice 09/23/12
--- OUTSIDE RECORDS SUMMARY | 2025-04-23 12:58 | XMS_ITS | Clinical Summary ---
Author Organization [facility] [address] Address [address] [place] [address] Care Team Providers Care Veneer Manufacturer Name Role Phone Jesús Stevens MD Primary Care Provider [phone] Allergies Active Allergy Reactions Criticality Noted Date [...] on file Legal Sex Male 10:34 AM MATERIAL STOCKKEEPER YARD Gender Identity Not on file Sexual Orientation Not on file Obstetrics History Last Filed Vital Signs Vital Sign Reading Time Taken Comments Blood Pressure 138/76 08/12/2018 1:10 PM MATERIAL STOCKKEEPER YARD Pulse 66 08/12/2018 1:10 PM MATERIAL STOCKKEEPER YARD Temperature - - Respiratory Rate - - Oxygen Saturation 98% 08/12/2018 1:10 PM MATERIAL STOCKKEEPER YARD Inhaled Oxygen Concentration - - Weight 76.7 kg (169 lb) 08/12/2018 1:10 PM MATERIAL STOCKKEEPER YARD Height 172.7 cm (5' 8) 08/12/2018 1:10 PM MATERIAL STOCKKEEPER YARD Body Mass Index 25.7 08/12/2018 1:10 PM MATERIAL STOCKKEEPER YARD Plan of Treatment Not on file Insurance MEDICARE MEDICARE [facility] MEDICARE SUPPLEMENT Care Teams Veneer Manufacturer Relationship Specialty Start Date End Date Jesús Stevens MD [address] [place] [address] PCP - General Family Medicine 08/05/18
--- OUTSIDE RECORDS SUMMARY | 2025-04-23 12:58 | XMS_ITS | Encounter Summary ---
Author Organization [facility] Address [address] [place] [address] Care Team Providers Care Quality Officer Name Role Phone Francis Stevens MD Primary Care Provider [phone] Encounter Details Date Type Department Care Team (Latest Contact Info) Description 07/13/2007 Outpatient Historical [facility] Rafita Thomas MD NO ADDRESS ON FILE Spinal Stenosis, Unspecified Region Other than Cervical Social History Tobacco Use Types Packs/Day Years Used Date Smoking Tobacco: Never Assessed Sex and Gender Information Value Date Recorded Sex Assigned at Not on file Legal Sex Male 4:03 AM CARDIAC REHAB NURSE Gender Identity Not on file Sexual Orientation Not on file documented as of this encounter Plan of Treatment Not on file documented as of this encounter Procedures Procedure Name Priority Date/Time Associated Diagnosis Comments HEMOGLOBIN AND HEMATOCRIT Routine 07/28/2007 5:20 AM CARDIAC REHAB NURSE HEMOGLOBIN AND HEMATOCRIT Routine 07/27/2007 6:25 PM CARDIAC REHAB NURSE documented in this encounter Results * (ABNORMAL) HEMOGLOBIN AND HEMATOCRIT (07/28/2007 5:20 AM CARDIAC REHAB NURSE) HEMOGLOBIN 12.4(L) 13.6 - 16.5 g/dL INTERFACE SYSTEM HEMATOCRIT 37.1(L) 40.0 - 48.0 % INTERFACE SYSTEM 07/28/2007 5:20 AM CARDIAC REHAB NURSE us Rafita Thomas MD HEMATOLOGY ORDERABLES Edited INTERFACE SYSTEM Refer to clinic/hospital department * (ABNORMAL) HEMOGLOBIN AND HEMATOCRIT (07/27/2007 6:25 PM CARDIAC REHAB NURSE) HEMOGLOBIN 13.5(L) 13.6 - 16.5 g/dL INTERFACE SYSTEM HEMATOCRIT 40.2 40.0 - 48.0 % INTERFACE SYSTEM 07/27/2007 6:25 PM CARDIAC REHAB NURSE us Rafita Thomas MD HEMATOLOGY ORDERABLES Edited INTERFACE SYSTEM Refer to clinic/hospital department documented in this encounter Visit Diagnoses Diagnosis Spinal stenosis, unspecified region other than cervical documented in this encounter Care Teams Quality Officer Relationship Specialty Start Date End Date Francis Stevens MD [address] [place] [address] PCP - General Family Practice 09/23/12 documented as of this encounter
== END 2025-04-23 12:53 | disposition home or self-care (01) ==
LOC: ANHAUDASC 12:53
PROVIDERS: PCP Family Medicine; Visit Provider Family Medicine
DX: E78.2 Mixed hyperlipidemia (principal); M75.81 Other shoulder lesions, right shoulder; H40.051 Ocular hypertension, right eye; N40.1 Benign prostatic hyperplasia with lower urinary tract symptoms; M47.812 Spondylosis without myelopathy or radiculopathy, cervical region; L82.0 Inflamed seborrheic keratosis; L21.9 Seborrheic dermatitis, unspecified; H90.3 Sensorineural hearing loss, bilateral
CPT/HCPCS: 92557; 92567

== ENCOUNTER 2025-05-11 08:18 | Outpatient (CLI) | payer MEDICARE, SELFPAY ==
--- OUTSIDE RECORDS SUMMARY | 2025-05-11 08:27 | XMS_ITS | Clinical Summary ---
Author Organization [facility] [address] Address [address] [place] [address] Care Team Providers Care Straightening Machine Feeder Name Role Phone Jesús Stevens MD Primary Care Provider [phone] Allergies Active Allergy Reactions Criticality Noted Date [...] on file Legal Sex Male 10:34 AM COPY WORKER Gender Identity Not on file Sexual Orientation Not on file Obstetrics History Last Filed Vital Signs Vital Sign Reading Time Taken Comments Blood Pressure 138/76 08/12/2018 1:10 PM COPY WORKER Pulse 66 08/12/2018 1:10 PM COPY WORKER Temperature - - Respiratory Rate - - Oxygen Saturation 98% 08/12/2018 1:10 PM COPY WORKER Inhaled Oxygen Concentration - - Weight 76.7 kg (169 lb) 08/12/2018 1:10 PM COPY WORKER Height 172.7 cm (5' 8) 08/12/2018 1:10 PM COPY WORKER Body Mass Index 25.7 08/12/2018 1:10 PM COPY WORKER Plan of Treatment Not on file Insurance MEDICARE MEDICARE [facility] MEDICARE SUPPLEMENT Care Teams Straightening Machine Feeder Relationship Specialty Start Date End Date Jesús Stevens MD [address] [place] [address] PCP - General Family Medicine 08/05/18
--- OUTSIDE RECORDS SUMMARY | 2025-05-11 08:27 | XMS_ITS | Data Portability ---
Author Organization [place] [facility], Main Office Address [address] [place] [address] Care Team Providers Care Fire Watcher Name Role Phone STACEY RANGEL Primary Care Provider STACEY RANGEL Referring Provider [phone] Assessment Encounter Date Assessment Date Assessment LastModified [...] in therapy. Also he has an in [employer] pool [employer] exercise and this quite a bit Before [...] In 2 weeks she is going to [facility] on a trip. Over these next 2 [...] recorded. Referral physical therapist referral 2022 023 [email or web address], [address], [place], [address], 3 10:47:40 Procedures None recorded. Surgeries None recorded. Imaging XR, hip + pelvis, unilateral 2022 023 [email or web address] [place], [address], [place], [address], 3 17:14:22 XR, hip + pelvis, unilateral 2022 023 [facility] [place], [address], [place], [address], 3 12:17:39 Medication Orders Medrol (Ivan) 4 mg tablets in a dose pack 2022 023 [id number], [address], [place], [id number], 13:10:33 Patient TargetsNo targets recorded. Patient InstructionsNo instructions recorded. Reason for Referral Physical Therapist Referral for History of total replacement of right hip joint Referring Physician: Cody Eduardo, Orthopedic Surgery, Encounter Date: 12/23/2022 Results Created Date Observation Date Name Description Value Unit Range Abnormal Flag Note LastModifiedBy Organization Detail LastModifiedTime 09/04/1909/04/2022 XR, hip + pelvi s, unila teral No observ ation record ed. [id number] [facility] [place] [address], [place], [address], 09/23/2022 14:13:15 11/19/19 23 09/24/2022 elect benny ortizgr am No observ ation record ed. [email or web address] Not Available 2022 10:07:59 11/24/19 23 11/23/2022 XR, hip + pelvi s, unila teral No observ ation record ed. [address], [place], [address], 11/24/2022 11:27:06 11/24/19 23 11/23/2022 XR, hip + pelvi s, unila teral No observ ation record ed. [place] [id number], [place], [address], 11/24/2022 11:27:27 12/24/19 XR, hip + pelvi s, unila teral No observ ation record ed. [facility] [place] [address], [place], [address], 12/23/2022 12:08:02 01/21/20 23 XR, hip + pelvi s, unila teral No observ ation record ed. [email or web address] [facility] [place] [address], [place], [address], 01/20/2023 10:16:34 Result Notes None recorded. Problems Name Problem SNOMED Code Status Onset Date Resolution Date Notes Provider Name and Address Organization Details Recorded Time Localized, primary osteoarthr itis of the pelvic region and thigh 145701716 Active Not Available [facility] 3 14:11:17 Pain of right hip joint 9396366569312 02 Active 2022 Not Available [facility] 3 14:11:17 Problem Notes None recorded. Medical Equipment None Reported. Allergies Allergen ID Allergen Name Allergen Category Reaction Reaction Severity Criticality Documentation Date Start Date Code Code System Note Provider Name and Address Organization Details Recorded Time 49957 piroxicam medicatio n Not available Not available Not available 09/23/2022 8356 RxNorm Not Available [facility] 3 14:13:13 99566 Feldene medicatio n rash moderate Not available 09/23/2022 44074 8 RxNorm Not Available [facility] 3 14:13:13 Medications Name Sig Start Date [...] and Address Organization Details Last Updated DateTime 09/04/2022 26.6 kg/m2 170.18 cm 66493.7 g Not Available [facility] 09/23/2022 14:10:52 Date Recorded Body height Provider Name an d Address Organization Details Last Updated DateTime 12/07/2022 170.18 cm TAMIR Schwartz [facility] [employer] [facility] 12/07/2022 15:17:44 Date Recorded Body height Provider Name an d Address Organization Details Last Updated DateTime 12/23/2022 170.18 cm Trish Elaine [facility] [employer] [facility] 12/23/2022 10:03:14 Date Recorded Body height Provider Name an d Address Organization Details Last Updated DateTime 01/20/2023 170.18 cm TAMIR Schwartz [facility] [employer] [facility] 01/20/2023 09:58:23 Social History None recorded. Functional Status Question Answer Note LastModified by Organizat ion Details LastModified Time What is your level of alcohol consumption? Occasional [id number] Information not available 09/23/2022 Mental Status None recorded. Family History Relationship Description Onset Age of this Age Resolved Age Notes LastModified by Organization Details LastModified Time Brother Heart disease [id number] Not available 09/23/2022 14:10:24 Maternal Grandmother Family history of stroke [email or web address] Not available 01/20 09:55:25 Father Hypertensive disorder [id number] Not available 09/23/2022 14:10:24 Father Blood coagulation disorder [email or web address] Not available 01/20 09:55:25 Mother Hypertensive disorder [id number] Not available 09/23/2022 14:10:24 Mother Chronic obstructive pulmonary disease [email or web address] Not available 01/20 09:55:25 Sister Chronic obstructive pulmonary disease [email or web address] Not available 01/20 09:55:25 Notes:FATHER-VENOUS THROMBOS IS MOTHER- PULMONARY FIBROSIS Medical History Condition Response CANCER: SPECIFY Y Past Encounters Encounter ID Performer Location Encounter Start Date Encounter Closed Date Diagnosis/Indication Diagnosis SNOMED-CT Code Diagnosis ICD10 Code Diagnosis IMO Codes Diagnosis Note [id number] Cody Eduardo MD [facility] [place] [address] [place] [address] 09/04/2022 00:00:00 09/06/2022 15:43:32 [id number] Cody Eduardo MD [facility] [place] [address] [place] [address] 12/07/2022 15:10:54 12/07/2022 15:48:14 History of total replacement of right hip joint 9505400971 26924 Z96.641 [id number] Cody Eduardo MD [facility] [place] [address] [place] [address] 12/23/2022 09:59:58 12/23/2022 12:16:13 History of total replacement of right hip joint 9506346227 69940 Z96.641 [id number] Cody Eduardo MD [facility] [place] [facility] [facility] [address] [place] [address] 01/20/2023 09:54:15 01/28/2023 17:14:22 History of total replacement of right hip joint 4786429492 41712 Z96.641 Health Concerns Section Related Observation LastModified by Organization Detai ls LastModified Time None Recorded Concern Status LastModified by Organization Details LastModified Time None Recorded Advance Directives Directive None Recorded Payers Insurance Date Sequence Insurance Name Policy Number Policy Maloney Covered Member ID Maloney Member ID Guarantor Name 11/24/2023 1 [place] Camilo Gupta [id number] Camilo Gupta M.D. 11/21/2023 2 [place] [id number] Camilo Gupta [id number] Camilo Gupta M.D.
--- OUTSIDE RECORDS SUMMARY | 2025-05-11 08:27 | XMS_ITS | Encounter Summary ---
Author Organization [facility] Address [address] [place] [address] Care Team Providers Care Strand Buncher Fine Wire Name Role Phone Francis Stevens MD Primary Care Provider [phone] Encounter Details Date Type Department Care Team (Latest Contact Info) Description 07/13/2007 Outpatient Historical [facility] Rafita Thomas MD NO ADDRESS ON FILE Spinal Stenosis, Unspecified Region Other than Cervical Social History Tobacco Use Types Packs/Day Years Used Date Smoking Tobacco: Never Assessed Sex and Gender Information Value Date Recorded Sex Assigned at Not on file Legal Sex Male 4:03 AM INDUCTION MACHINE SETTER Gender Identity Not on file Sexual Orientation Not on file documented as of this encounter Plan of Treatment Not on file documented as of this encounter Procedures Procedure Name Priority Date/Time Associated Diagnosis Comments HEMOGLOBIN AND HEMATOCRIT Routine 07/28/2007 5:20 AM INDUCTION MACHINE SETTER HEMOGLOBIN AND HEMATOCRIT Routine 07/27/2007 6:25 PM INDUCTION MACHINE SETTER documented in this encounter Results * (ABNORMAL) HEMOGLOBIN AND HEMATOCRIT (07/28/2007 5:20 AM INDUCTION MACHINE SETTER) HEMOGLOBIN 12.4(L) 13.6 - 16.5 g/dL INTERFACE SYSTEM HEMATOCRIT 37.1(L) 40.0 - 48.0 % INTERFACE SYSTEM 07/28/2007 5:20 AM INDUCTION MACHINE SETTER us Rafita Thomas MD HEMATOLOGY ORDERABLES Edited INTERFACE SYSTEM Refer to clinic/hospital department * (ABNORMAL) HEMOGLOBIN AND HEMATOCRIT (07/27/2007 6:25 PM INDUCTION MACHINE SETTER) HEMOGLOBIN 13.5(L) 13.6 - 16.5 g/dL INTERFACE SYSTEM HEMATOCRIT 40.2 40.0 - 48.0 % INTERFACE SYSTEM 07/27/2007 6:25 PM INDUCTION MACHINE SETTER us Rafita Thomas MD HEMATOLOGY ORDERABLES Edited INTERFACE SYSTEM Refer to clinic/hospital department documented in this encounter Visit Diagnoses Diagnosis Spinal stenosis, unspecified region other than cervical documented in this encounter Care Teams Strand Buncher Fine Wire Relationship Specialty Start Date End Date Francis Stevens MD [address] [place] [address] PCP - General Family Practice 09/23/12 documented as of this encounter
--- OUTSIDE RECORDS SUMMARY | 2025-05-11 08:27 | XMS_ITS | Clinical Summary ---
Author Organization [facility] Address [address] [place] [address] Phone Care Team Providers Care Paper Rewinder Operator Name Role Phone Francis Stevens MD Primary Care Provider [phone] Allergies Active Allergy Reactions Criticality Noted Date [...] on file Legal Sex Male 4:03 AM ACID PURIFICATION EQUIPMENT OPERATOR Gender Identity Not on file Sexual Orientation [...] 175.3 cm (5' 9) 09/28/2012 9:30 AM ACID PURIFICATION EQUIPMENT OPERATOR Body Mass Index 25.16 09/28/2012 9:30 AM ACID PURIFICATION EQUIPMENT OPERATOR Plan of Treatment Health Maintenance Due Date [...] (#1) 2025 Medical Devices Implanted Type Area Mushroom Growing Supervisor Device Identifier Shelf Expiration Date Model / Serial / Lot Allgrft Spacer Acf 10mm 694855 - [id number] Implanted:Qt y: 1 on 10/03/2012 at [facility] Bone N/A: Spine Cervical Anterior MUSCULOSKELETAL TRANSPLANT FOU 08/27/2016 206503 / [id number] / Allgrft Spacer Acf 8mm 585613 - [id number] Implanted:Qt y: 1 on 10/03/2012 at [facility] N/A: Spine Cervical Anterior MUSCULOSKELETAL TRANSPLANT FOU 01/24/2017 222348 / [id number] / 0 Allgrft Spacer Acf 8mm 756220 - [id number] Implanted:Qt y: 1 on 10/03/2012 by Rafita Thomas MD at [facility] N/A: Spine Cervical Anterior MUSCULOSKELETAL TRANSPLANT FOU 01/24/2017 921384 / [id number] / Allgrft Spacer Acf 9mm 187027 - [id number] Implanted:Qt y: 1 on 10/03/2012 at [facility] Bone N/A: Spine Cervical Anterior MUSCULOSKELETAL TRANSPLANT FOU 03/20/2017 159795 / [id number] 1120 / Screw [place] Vari Sd 14mm 1867-50-014 - [id number] Implanted:Qt y: 8 on 10/03/2012 by Rafita Thomas MD at [facility] Screw N/A: Spine Cervical Anterior J[employer] 4 / / Description:Log September 30 3 Sealant Floseal W/ Adptr 10ml [id number] - [id number] Implanted:Qt y: 1 on 10/03/2012 by Rafita Thomas MD at [facility] Sealant N/A: Neck SAM- BIOSCIENCE 11/23/2013 546090 2 / / [id number] Sealant Floseal W/ Apdtr 5ml [id number] - [id number] Implanted:Qt y: 1 on 10/03/2012 by Rafita Thomas MD at [facility] Sealant N/A: Spine Cervical Anterior SAM- BIOSCIENCE 09/23/2013 [id number] / / [id number] 72mm Cervical [place] Plate Implanted:Qt y: 1 on 10/03/2012 by Rafita Thomas MD at [facility] N/A: Spine Cervical Anterior J&J- [employer] 1867-10-31 2 / / Description:Log September 15mm [place] Screws Implanted:Qt y: 2 on 10/03/2012 by Rafita Thomas MD at [facility] N/A: Spine Cervical Anterior J[employer]J- [employer] 5 / / Description:Log September Advance Directives For more information, please contact: [phone] * Full Code (Latest Code Status on File) Date Activated Date Inactivated Comments 10/03/2012 11:38 AM 10/04/2012 12:31 PM * Full Code Date Activated Date Inactivated Comments 10/03/2012 6:34 AM 10/03/2012 11:38 AM * Full Code Date Activated Date Inactivated Comments 10/03/2012 5:40 AM 10/03/2012 6:34 AM Care Teams Paper Rewinder Operator Relationship Specialty Start Date End Date Francis Stevens MD [address] [place] [address] PCP - General Family Practice 09/23/12
[2025-05-11 12:58] LABS: Alanine Aminotransferase 23 U/L (6-50); Albumin Level 4.1 g/dL (3.5-5.1); Alkaline Phosphatase 67 U/L (38-126); Anion Gap 5 mmol/L (4-12); Aspartate Amino Transferase 52 U/L (17-59); Bilirubin,Total 1.2 mg/dL (0.2-1.3); Blood Urea Nitrogen 17 mg/dL (9-20); Calcium 9.1 mg/dL (8.4-10.2); Carbon Dioxide 28 mmol/L (22-30); Chloride 105 mmol/L (98-107); Cholesterol 165 mg/dL (0-200); Estimated Glomerular Filt Rate > 60; Glucose 88 mg/dL (65-110); HDL Direct 62 mg/dL; Potassium 4.3 mmol/L (3.4-5.0); Sodium 138 mmol/L (137-145); Total Protein 6.7 g/dL (6.3-8.2); Triglycerides 77 mg/dL (<150)
== END 2025-05-11 08:19 | disposition home or self-care (01) ==
PROVIDERS: PCP Family Medicine; Visit Provider Family Medicine
DX: E78.2 Mixed hyperlipidemia (principal)
CPT/HCPCS: 36415; 80053; 80061

== ENCOUNTER 2025-06-12 09:14 | Outpatient (CLI) | payer MEDICARE, SELFPAY ==
--- NOTE | ~2025-06-12 | MR_ITS ---
EXAM/PROCEDURE: MR shoulder RT wo con HISTORY: failed PT COMPARISON: None available. TECHNIQUE: Multiplanar noncontrast enhanced right shoulder MRI performed. FINDINGS: No fracture subluxation or dislocation. Small to moderate joint effusion. Moderately severe osteoarthritic degenerative changes at the glenohumeral joint, with subchondral cystic changes developing at the greater tuberosity, and moderate to severe arthrosis at the AC joint. Moderate-sized retracted full-thickness supraspinatus tendon tear with the tendon retracted approximately 2.1 cm. See image 8 series 6. At least partial-thickness tear involving the infraspinatus tendon with cystic changes in the myotendinous region suggesting chronic longitudinal tear but small full-thickness tear is suspected along the anterior margin of the infraspinatus tendon. Subscapularis tendon and teres minor appears intact. No labral tear seen. The long head of the biceps tendon is intact within the bicipital groove. Partially visualized superior labral attachment appears intact. Cystic-appearing changes in the infraspinatus muscle/tendon extend medially in close proximity to the spinal glenoid recess but no clear distortion of the recess itself. See images 13 through 15 of series 3. Suprascapular notch region appears normal. IMPRESSION: 1. Full-thickness retracted supraspinatus tendon tear and at least partial- thickness tear in the supraspinatus tendon. See comments above. 2. Advanced degenerative changes about the shoulder and AC joint. Reviewed, dictated and finalized at location A. ICS TEACHER IMPRESSION: 1. Full-thickness retracted supraspinatus tendon tear and at least partial-thic kness tear in the supraspinatus tendon. See comments above. 2. Advanced degenerative changes about the shoulder and AC joint.
--- NOTE | ~2025-06-12 | XR_ITS ---
EXAMINATION: XR shoulder RT min 2V, 06/12/2025 9:22 RADIOLOGICAL ENGINEER HISTORY: right shoulder pain x 9 months, no inj, no surg COMPARISON: No comparisons available. Findings: No acute fracture or malalignment. Moderate to severe degenerative changes Soft tissues unremarkable. Impression: No acute fracture or malalignment. Reviewed, dictated and finalized at location P. OLOGICAL ENGINEER Impression: No acute fracture or malalignment.
== END 2025-06-12 09:15 | disposition home or self-care (01) ==
LOC: GOSHIMG 09:15
PROVIDERS: PCP Family Medicine; Visit Provider Family Medicine
DX: M75.81 Other shoulder lesions, right shoulder (principal); M25.819 Other specified joint disorders, unspecified shoulder; S46.011A Strain of muscle(s) and tendon(s) of the rotator cuff of right shoulder, initial encounter; X58.XXXA Exposure to other specified factors, initial encounter
CPT/HCPCS: 73030; 73221